=== PATIENT | male | born 1950 ===

== ENCOUNTER 2018-06-24 10:50 | Inpatient (IN) | payer MEDICAID, MEDICARE ==
[2018-06-24 10:51] VITALS: BMI 27.4
[2018-06-24] MEDS ORDERED: Sodium Chloride 0.9% 1,000 ML IV STA ×3 (11:37→14:55)
--- NOTE | 2018-06-24 12:37 | RAD ---
Date of service: 06/24/2018 HISTORY: fever COMPARISON: No prior. FINDINGS: LUNGS: No active pulmonary disease. PLEURA: No significant pleural effusion identified, no pneumothorax apparent. CARDIOVASCULAR: Normal. OSSEOUS STRUCTURES: No significant abnormalities. VISUALIZED UPPER ABDOMEN: Normal. OTHER FINDINGS: None. IMPRESSION: No active disease.
[2018-06-24 12:43] LABS: BASO % 0.2 % (0.0-2.0); HEMOGLOBIN 13.4 g/dL (12.0-18.0); LYMPH # 0.5 K/uL (1.0-4.3); LYMPH % 3.2 % (20.0-40.0); MEAN CELL VOLUME 90.6 fl (80.0-94.0); MEAN CORPUSCULAR HGB CONC 34.2 g/dL (33.0-37.0); MEAN PLATELET VOLUME 10.8 fl (7.2-11.7); MONO # 0.4 K/uL (0.0-0.8); MONO % 2.7 % (0.0-10.0); NEUT # 14.9 K/uL (1.8-7.0); NEUT % 93.9 % (50.0-75.0); RBC 4.32 Mil/uL (4.40-5.90); RED CELL DISTRIBUTION WIDTH 13.3 % (11.5-14.5); WHITE BLOOD COUNT 15.9 K/uL (4.8-10.8)
[2018-06-24 12:51] LABS: ALB/GLOB RATIO 1.1 (1.0-2.1); ALBUMIN 3.9 g/dL (3.5-5.0); ALT/SGPT 26 U/L (21-72); AST/SGOT 23 U/L (17-59); BLOOD UREA NITROGEN 23 mg/dl (9-20); CALCIUM 9.3 mg/dL (8.4-10.2); GFR NON-AFRICAN AMERICAN > 60
[2018-06-24 12:53] LABS: VENOUS BLOOD GAS BASE EXCESS 4.5 mmol/L (0.0-2.0); VENOUS BLOOD GAS PCO2 39 mmHg (40-60); VENOUS BLOOD GAS PO2 27 mm/Hg (30-55); VENOUS BLOOD PH 7.47 (7.32-7.43)
[2018-06-24 12:54] LABS: PLATELET COUNT 106 K/uL (130-400)
[2018-06-24 13:30] LABS: ANISOCYTOSIS SLIGHT; BANDS 26 % (0-2); LYMPHOCYTE 3 % (20-50); MONOCYTE 1 % (0-10); NEUTROPHIL 70 % (42-75); PLATELET ESTIMATE SLIGHTLY DECREASED (NORMAL); TOTAL CELLS COUNTED 100
[2018-06-24 13:31] LABS: LARGE PLATELETS PRESENT
[2018-06-24] MEDS ORDERED: cefTRIAXone (Rocephin) 1 gm Inj ONE (13:44)
[2018-06-24] MEDS ORDERED: SODIUM CHLORIDE 0.9% IVPB SCH (13:58)
[2018-06-24] MEDS ORDERED: GENTAMICIN IVPB SCH (13:58)
--- NOTE | 2018-06-24 14:16 | ED PDOC ---
Addendum entered and electronically signed by Marilee Riggs PA-C 06/24/18 16:45: Addendum Addendum: 06/24/18 16:45 CT results discussed with Dr. Zeng and Dr. Dumont. Original Note: HPI: General Adult Chief Complaint (Provider): Fever, lower abdominal discomfort History Per: Patient History/Exam Limitations: no limitations, other (Compounding Assistant used ) Have you had recent travel within the past 21 days to any of the following countries: [place], [place], [place] or [place]?: No Additional Complaint(s): 68 yo male with HTN and BPH presents for evaluation of fever. Pt states he had surgery on his prostate [address] Bell in [facility]. Pt states yesterday night he was having chills/shakes. PT states he noticed a fever this morning and was sweating. Pt states his lower abdominal has a mild discomfort but not a pain. Pt denies cough. Pt states his urine has been red but getting less red lise, which he was told to expect. Pt states he has been urinating on his own however cannot tell when he is having the sensation of needing to go so he has been wearing a diaper. Pt states he also uses enemas to have BMs at home. <Marilee Riggs - Last Filed: 06/24/18 16:45> <Tere Swain - Last Filed: 06/25/18 15:58> Time Seen by Provider: 06/24/18 10:57 Chief Complaint (Nursing): Abdominal Pain Supervising Attending Note - Supervising Attending Note The Documented history was done by the: Attending Physician The documented physical exam was done by the: Attending Physician - Attestation: I have personally seen and examined this patient.: Yes I have fully participated in the care of the patient.: Yes I have reviewed all pertinent clinical information, including history, physical exam and plan: Yes - Notes: Notes:: Pt 3 days s/p laser ablation of the prostate, presented to ED with fever, tachycardia and hypotension. Labs revealed leukocytosis, bandemia and elevated lactate. Code sepsis protocol initiated. IVF boluses administered. Case discussed with Dr. Dumont, Dr. Newell and Dr. Kramer. Meropenem ordered. <Tere Swain - Last Filed: 06/25/18 15:58> Past Medical History Vital Signs: Last Vital Signs Temp 98.6 F 06/24/18 12:18 Pulse 118 H 06/24/18 11:11 Resp 20 06/24/18 11:11 BP 105/56 L 06/24/18 11:11 Pulse Ox 99 06/24/18 11:11 - Medical History PMH: Arthritis, Back Problems, Colonic Polyps, HTN, Hypercholesterolemia (no longer) - Surgical History Surgical History: Endoscopy - Family History Family History: States: Unknown Family Hx - Immunization History Hx Tetanus Toxoid Vaccination: No Hx Influenza Vaccination: Yes (2014) Hx Pneumococcal Vaccination: No <Marilee Riggs - Last Filed: 06/24/18 16:45> Vital Signs: Last Vital Signs Temp 97.9 F 06/25/18 12:00 Pulse 71 06/25/18 14:00 Resp 12 06/25/18 14:00 BP 93/57 L 06/25/18 14:00 Pulse Ox 100 06/25/18 14:00 <Tere Swain - Last Filed: 06/25/18 15:58> - Home Medications Home Medications: Ambulatory Orders Medication Instructions Recorded Lisinopril/Hydrochlorothiazide 1 tab PO DAILY 08/16/17 [Lisinopril-Hydrochlorothiazide 25 mg-20 mg] metFORMIN [glucOPHAGE] 500 mg PO DAILY 04/09/18 Ciprofloxacin [Cipro] 500 mg PO Q12 06/24/18 RX: Aspirin [Ecotrin] 81 mg PO DAILY 06/24/18 RX: Ibuprofen [Ibuprofen Ib] 400 mg PO Q6 PRN 06/24/18 - Allergies Allergies/Adverse Reactions: Allergies Allergy/AdvReac Type Severity Reaction Status Date / Time No Known Allergies Allergy Verified 06/24/18 11:11 - Laboratory Results Result Diagrams: 06/24/18 12:30 06/24/18 12:30 - ECG O2 Sat by Pulse Oximetry: 99 Pulse Ox Interpretation: Normal - Radiology X-Ray: Interpreted by Mi - Critical Care Total Time (In Min): 30 <Marilee Riggs - Last Filed: 06/24/18 16:45> - Laboratory Results Result Diagrams: 06/25/18 04:30 06/25/18 04:30 - Core Measure Core Measure Indicators: Code Sepsis - Critical Care Total Time (In Min): 45 <Tere Swain - Last Filed: 06/25/18 15:58> Medical Decision Making Medical Decision Makin yo male with HTN presents with fever. IV and fluids given. Labs including VBG and blood cultures. Elevetd WBC 15.6 and bands 26 - Resulted at 1333. Additional fluids placed. Repeat vitals - Hypotension, normal HR, afebrile. Code sepsis called at 1342. Dr. Swain discussed with Dr. Kramer - Meropenem 1g Q8H. monitor fluid in/out Dr. Swain also discussed with Dr. Newell for admission. Pts primary is Dr. Degroot. 1410 - Discussed urinary catheter with Dr. Zeng and prefers patient not have catheter placed due to recent prostates surgery. 1413 - Pt gives urine. 1415 - Dr. Howe, resident notified. <Marilee Riggs - Last Filed: 06/24/18 16:45> Disposition - Patient ED Disposition Is Patient to be Admitted: Yes - Disposition Disposition Time: 14:05 - Pt Status Changed To: Hospital Disposition Of: Inpatient - Admit Certification Admit to Inpatient:: After my assessment, the patient will require hospitalization for at least two midnights. This is because of the severity of symptoms shown, intensity of services needed, and/or the medical risk in this pa tient being treated as an outpatient. - POA Present On Arrival: None Core Measure Indicators: Code Sepsis <Marilee Riggs - Last Filed: 06/24/18 16:45> <Tere Swain - Last Filed: 06/25/18 15:58> - Clinical Impression Clinical Impression: Sepsis - Disposition Condition: FAIR
[2018-06-24 14:30] LABS: SQUAMOUS EPITHIAL < 1 /hpf (0-5); URINE BACTERIA MANY (<OCC); URINE BILIRUBIN NEGATIVE (NEGATIVE); URINE BLOOD LARGE (NEGATIVE); URINE CLARITY CLOUDY (Clear); URINE COLOR YELLOW (YELLOW); URINE GLUCOSE (UA) NEG (Normal); URINE HYALINE CAST >20 /hpf (0-2); URINE LEUKOCYTE ESTERASE MOD Leu/uL (Negative); URINE PROTEIN 100 mg/dL (NEGATIVE); URINE UROBILINOGEN 0.2-1.0 mg/dL (0.2-1.0)
[2018-06-24] MEDS ORDERED: Meropenem 1 GM in Sodium Chloride 0.9% 100 ML IVPB STA (14:38)
[2018-06-24] MEDS: Lactated Ringer's 1,000 ML IV SCH ×2 (14:42→20:14)
[2018-06-24] MEDS ORDERED: Sodium Chloride 0.9% 50 ML IV ONE (15:25)
[2018-06-24] MEDS ORDERED: Iohexol 300 100 ML IJ ONE (15:25)
--- NOTE | 2018-06-24 16:34 | CT ---
Date of service: 06/24/2018 PROCEDURE: CT Abdomen and Pelvis with contrast HISTORY: fever, prostate surgery 3 days ago COMPARISON: CT scan of the abdomen and pelvis dated 11/28/2015 TECHNIQUE: Contrast dose: 95 mL Omnipaque 300 Radiation dose: Total exam DLP = 448.8 mGy-cm. This CT exam was performed using one or more of the following dose reduction techniques: Automated exposure control, adjustment of the mA and/or kV according to patient size, and/or use of iterative reconstruction technique. FINDINGS: LOWER THORAX: Bibasilar dependent atelectasis. No focal consolidation or pleural effusion. LIVER: Coarse calcification in the hepatic dome. No gross lesion or ductal dilatation. GALLBLADDER AND BILE DUCTS: Contracted gallbladder with mild wall thickening. PANCREAS: Unremarkable. No gross lesion or ductal dilatation. SPLEEN: Unremarkable. ADRENALS: Unremarkable. No mass. KIDNEYS AND URETERS: Stable subcentimeter right lower and 4.3 cm left lower pole cysts. No hydronephrosis. No solid mass. VASCULATURE: Retro aortic left renal vein. No aortic aneurysm. BOWEL: Small hiatal hernia. No obstruction. No gross mural thickening. APPENDIX: No findings to suggest acute appendicitis. PERITONEUM: Small fat containing umbilical hernia. Small left fat containing inguinal hernia. No free fluid. No free air. LYMPH NODES: Unremarkable. No enlarged lymph nodes. BLADDER: Unremarkable. REPRODUCTIVE: Heterogeneous prostate with 2.6 x 2.5 x 2.7 cm air and fluid collection within the anteroinferior prostate. BONES: No acute fracture. Multilevel spinal degenerative changes. OTHER FINDINGS: None. IMPRESSION: 2.6 x 2.5 x 2.7 cm prostatic abscess. Findings conveyed to AWILDA Jones by Dr. Mcneill at 4:30 p.m. on 06/24/2018.
[2018-06-24] MEDS ORDERED: Meropenem 1 GM in Sodium Chloride 0.9% 100 ML IVPB SCH (17:00)
[2018-06-24 17:05] LABS: VENOUS BLOOD GAS BASE EXCESS -0.9 mmol/L (0.0-2.0); VENOUS BLOOD GAS PCO2 50 mmHg (40-60); VENOUS BLOOD GAS PO2 24 mm/Hg (30-55); VENOUS BLOOD PH 7.32 (7.32-7.43)
--- NOTE | 2018-06-24 18:00 | CP.CCUPN ---
CCU Subjective - Physician Review Subjective (Free Text): 68 M with MH: HTN, DM II, Hyperlipidemia, OA with LBP syndrome, and BPH, underwent prostate scrapings 3 days ago, presents today with high fevers, and abdominal pain, T 103.3F, and Hypotensive , Code Sepsis called, given 2 liters NSS with acceptable BP response from 85 to 110 systolic, HR in the 80s. Presently awake and alert, not distressed, denies any nausea, vomiting. No recent chills or sweats. Other vitals and I/O's reviewed. 99.1F, 100/60, 86, 21, 100% SPO2 RA ROS: No other pertinent negs or positives on 10+ system review. Allergies; NKDA Home Meds: PMSFH: All other Nursing and physician documentation reviewed to date; no new pertinent info noted relevant to current medical problems. EXAM- HEENT: no icterus, no gaze preference, pupils equal and reactive NECK: No JVD visible, supple, carotids equal upstroke bilat/no bruits CHEST: decreased BS bases, no wheezes audible HEART: regular, distant S1S2, no rubs ABD: soft, no increased distention, no tympany, mild epigastric focal tenderness without radiation, BS hypoactive, no rebound. No CVAT. EXT: no peripheral/ digital cyanosis, no calf tenderness or palpable cords, distal pulses intact and symmetrical. NEURO: no gross focal motor deficits. SKIN: no new rashes, otherwise warm and dry. LABS: WBC= 15.9 with 26% Bands HGB= 12.4 PLTs= 106K Xc=092 K= 3.7 CL= 102 HCO3= 27 BUN/Cr= 23/1.2 BS= 128 CXR (my interp): clear bilaterally, no new consolidation. EKG: pending IMPRESSION / MAJOR PROBLEMS NOW: 1. Severe sepsis with Shock 2 Source, r/o bacteremia 2. Bactiuria 3. Azotemia PLAN: 1. IVFs/ Fluid challenge, so far patient is fluid responsive. ECHO, serial Trops if hypotension persists. 2. Serial lactate levels, repeat 2nd one at approx. 4 PM today. 3. EKG, CTAP pending. 4. ID eval. Merrem coverage ordered. Blood / urine cultures ordered and obtained in ER. 5. SCDs; no need for Stress Ulcer Prx. 6. Holding home meds including antihypertensives and Metformin for now. 7. Watch Platelet counts, check Coags. 8. No Advance Directives.
--- NOTE | 2018-06-24 18:07 | PCM.SEPTIC ---
Sepsis Progress Note - Reassessment Type Date of Evaluation: 06/24/18 Time of Evaluation: 18:05 Reassessment Type: Non-invasive reassessment - Non Invasive Reassessment Were the most recent vital sign reviewed: Yes Vital Sign (Latest): Temp Pulse Resp BP Pulse Ox 99.1 F 86 20 100/65 99 06/24/18 14:20 06/24/18 14:51 06/24/18 14:51 06/24/18 14:51 06/24/18 16:23 Cardiovascular: Yes: Regular Rate, Rhythm, Tachycardia Respiratory: Yes: Normal Breath Sounds Capillary Refill: Normal (Less than 2 sec) Pulses: Normal Radial, Normal Dorsalis Pedis, Normal Posterior Tibialis Skin: Normal Color, Warm, Dry - Invasive Reassessment (complete 2 of 4) Was a Central Venous Pressure Measurement obtained within 6 Hours after the presentation of septic shock: No Was a central venous oxygen measurement obtained within 6 hours after the presentation of septic shock: No Was a bedside cardiovascular ultrasound performed within 6 hours after the presentation of septic shock: No Was a passive leg raise performed or was a fluid challenge performed within 6 hrs of the initial fluid bolus: Yes Passive Leg Raise Result: Not Applicable (No TLC placed) Fluid Challenge performed: Yes
[2018-06-24] MEDS: Meropenem 1 GM in Sodium Chloride 0.9% 100 ML IVPB SCH (18:41)
--- NOTE | 2018-06-24 18:55 | CP.PCM.PN ---
Subjective - Date & Time of Evaluation Date of Evaluation: 06/24/18 Time of Evaluation: 18:47 - Subjective Subjective: Pt who had green light laser thursday for urinary retention who Recieved Gentamycin and cipro pre op and was mon cipro developed sepsis., Pt has clark in place draining clear urine . Pt thapa ct scan which shows some tissue necrosis and free air constant with post op sepsis(Discussed with Dr Mcneill radiology) Pt placed on antibiotics by ID. A gu sepsis P continue IV antibiotics pt will need repeat CT timing to be based on clinical course. Azucena Objective - Vital Signs/Intake and Output Vital Signs (last 24 hours): Temp Pulse Resp BP Pulse Ox 99.1 F 95 H 18 100/65 99 06/24/18 14:20 06/24/18 17:04 06/24/18 17:04 06/24/18 14:51 06/24/18 16:23 Intake and Output: 06/24/18 06/24/18 06:59 18:59 Output Total 425 Balance -425 - Medications Medications: Current Medications Acetaminophen (Tylenol 325mg Tab) 650 mg PO Q6 PRN PRN Reason: pain mild-moderate Lactated Ringer's (Lactated Ringer's) 1,000 mls @ 250 mls/hr IV .Q4H NIC Stop: 06/25/18 02:46 Last Admin: 06/24/18 14:42 Dose: 250 mls/hr Meropenem 1 gm/ Sodium (Chloride) 100 mls @ 100 mls/hr IVPB Q8 NIC; Protocol Last Admin: 06/24/18 18:41 Dose: 100 mls/hr Vancomycin HCl 1 gm/ Sodium (Chloride) 250 mls @ 166.667 mls/hr IVPB ONCE ONE; Protocol Stop: 06/24/18 19:12 Last Admin: 06/24/18 18:41 Dose: 166.667 mls/hr - Labs Labs: 06/24/18 12:30 06/24/18 12:30
[2018-06-25] MEDS: Meropenem 1 GM in Sodium Chloride 0.9% 100 ML IVPB SCH ×3 (00:03→16:39)
[2018-06-25] MEDS: Lactated Ringer's 1,000 ML IV SCH ×3 (04:51→14:48)
[2018-06-25 05:50] LABS: BASO % 0.2 % (0.0-2.0); EOS % 0.1 % (0.0-4.0); HEMOGLOBIN 11.6 g/dL (12.0-18.0); LYMPH # 1.2 K/uL (1.0-4.3); LYMPH % 10.6 % (20.0-40.0); MEAN CELL VOLUME 93.1 fl (80.0-94.0); MEAN CORPUSCULAR HEMOGLOBIN 31.3 pg (27.0-31.0); MEAN CORPUSCULAR HGB CONC 33.7 g/dL (33.0-37.0); MEAN PLATELET VOLUME 11.4 fl (7.2-11.7); MONO # 0.6 K/uL (0.0-0.8); MONO % 4.8 % (0.0-10.0); NEUT # 9.9 K/uL (1.8-7.0); NEUT % 84.3 % (50.0-75.0); RBC 3.7 Mil/uL (4.40-5.90); RED CELL DISTRIBUTION WIDTH 13.7 % (11.5-14.5); WHITE BLOOD COUNT 11.7 K/uL (4.8-10.8)
[2018-06-25 05:54] LABS: INR 1.4; PROTHROMBIN TIME 15.3 Seconds (9.8-13.1)
[2018-06-25 05:56] LABS: PARTIAL THROMBOPLASTIN TIME 30.3 Seconds (25.6-37.1)
[2018-06-25 06:00] LABS: ALBUMIN 3.1 g/dL (3.5-5.0); ALT/SGPT 48 U/L (21-72); AST/SGOT 106 U/L (17-59); BLOOD UREA NITROGEN 17 mg/dl (9-20); CALCIUM 8.7 mg/dL (8.4-10.2); GFR NON-AFRICAN AMERICAN > 60
--- NOTE | 2018-06-25 08:29 | CARD ---
APPROVED REPORT Date of service: 06/25/2018 EKG Measurement Heart [id number] <Conclusion> Sinus bradycardia Otherwise normal ECG
--- NOTE | 2018-06-25 08:39 | CARD ---
APPROVED REPORT Date of service: 06/24/2018 EKG Measurement Heart [id number] <Conclusion> Normal sinus rhythm Normal Electrocardiogram
--- NOTE | 2018-06-25 08:40 | CP.PCM.HP ---
<Jose Howe - Last Filed: 06/25/18 15:28> History of Present Illness - History of Present Illness History of Present Illness: Pt is a 68 y/o male with hx of BPH s/p[ Prostate Laser Ablation 3 days ago who came to ED with complaints of fever/chills, night sweats, and generalized weakness. States he has also been having small hematuria which he was told would be expected by urologist given recent procedure. He denies any procedural complications and states he took antibiotics prior. Denies N/V/D, abdominal pain, cough, sob, sick contacts, headaches or neck rigidity. Has chronic hx of constipation, uses enemas on a regular basis. Urologist: Dr. Zeng PMHx: HTN, NIDDM, BPH PSurgHx: Green Laser Therapy 3 days ago, Prostate States he has had mutliple prostate-related surgeries but cannot specify Social: Non smoker ED Course: -Pt sepsis- febrile, tachycardic, hypotensive, leukocytosis -Cxray no acute findings -2L IV fluid bolus, Blood Cx, UCx -ID consulted, Dr. Kramer, Meropenem started -Urology consulted -Abdominal/Pelvis CT w/ and w/o contrast -S/P Vanco, Meropenem, Ceftriaxone Present on Admission - Present on Admission Any Indicators Present on Admission: No Past Patient History - Infectious Disease Hx of Infectious Diseases: None - Past Medical History & Family History Past Medical History?: Yes - Past Social History Smoking Status: Never Smoked - CARDIAC Hx Hypercholesterolemia: Yes (no longer) Hx Hypertension: Yes - PULMONARY Hx Respiratory Disorders: No - NEUROLOGICAL Hx Neurological Disorder: No - HEENT Hx HEENT Problems: Yes Other/Comment: Uses glasses for near and far sightness. - RENAL Hx Chronic Kidney Disease: No - ENDOCRINE/METABOLIC Hx Endocrine Disorders: Yes Hx Diabetes Mellitus Type 2: Yes - HEMATOLOGICAL/ONCOLOGICAL Hx Blood Disorders: No - INTEGUMENTARY Hx Dermatological Problems: No - MUSCULOSKELETAL/RHEUMATOLOGICAL Hx Musculoskeletal Disorders: Yes Hx Arthritis: Yes Hx Falls: No - GASTROINTESTINAL Hx Gastrointestinal Disorders: Yes Hx Constipation: Yes - GENITOURINARY/GYNECOLOGICAL Hx Genitourinary Disorders: Yes Hx Prostate Problems: Yes - PSYCHIATRIC Hx Substance Use: No - SURGICAL HISTORY Hx Surgeries: Yes Hx Herniorrhaphy: Yes (umbilical and right ing) Other/Comment: HX:green light laser. HX: CYSTOSCOPY(06/07/18) - ANESTHESIA Hx Anesthesia: Yes Hx Anesthesia Reactions: Yes (NAUSEA/VOMITING) Hx Malignant Hyperthermia: No Has any member of the family had a problem w/ anesthesia?: No Meds Allergies/Adverse Reactions: Allergies Allergy/AdvReac Type Severity Reaction Status Date / Time No Known Allergies Allergy Verified 06/24/18 11:11 Physical Exam - Constitutional Appears: No Acute Distress - Head Exam Head Exam: NORMAL INSPECTION - Eye Exam Eye Exam: Normal appearance, PERRL. absent: Conjunctival injection - ENT Exam ENT Exam: Mucous Membranes Moist - Neck Exam Neck exam: Positive for: Full Rom. Negative for: Lymphadenopathy - Respiratory Exam Respiratory Exam: Clear to Auscultation Bilateral. absent: Rales, Wheezes, Respiratory Distress - Cardiovascular Exam Cardiovascular Exam: Tachycardia, +S1, +S2. absent: Systolic Murmur - GI/Abdominal Exam GI & Abdominal Exam: Normal Bowel Sounds, Soft. absent: Organomegaly, Rigid, Tenderness - Exam Exam: absent: Scrotal Swelling, Testicular Tenderness, Uretheral Discharge External exam: NORMAL EXTERNAL EXAM. absent: Ecchymosis, Erythema - Extremities Exam Extremities exam: Positive for: normal inspection - Neurological Exam Neurological exam: Alert, Oriented x3 - Psychiatric Exam Psychiatric exam: Normal Affect - Skin Skin Exam: Diaphoretic, Normal Color Results - Vital Signs Recent Vital Signs: Last Vital Signs Temp 97.7 F 06/25/18 08:00 Pulse 55 L 06/25/18 08:00 Resp 11 L 06/25/18 08:00 BP 90/56 L 06/25/18 08:00 Pulse Ox 100 06/25/18 08:00 - Labs Result Diagrams: 06/25/18 04:30 06/25/18 04:30 Labs: Laboratory Results - last 24 hr 06/24/18 06/24/18 06/24/18 12:30 12:30 12:30 WBC 15.9 H D RBC 4.32 L Hgb 13.4 Hct 39.2 MCV 90.6 MCH 31.0 MCHC 34.2 RDW 13.3 Plt Count 106 L MPV 10.8 Neut % (Auto) 93.9 H Lymph % (Auto) 3.2 L Davis % (Auto) 2.7 Eos % (Auto) 0.0 Baso % (Auto) 0.2 Neut # (Auto) 14.9 H Lymph # (Auto) 0.5 L Davis # (Auto) 0.4 Eos # (Auto) 0.0 Baso # (Auto) 0.0 Neutrophils % (Manual) 70 Band Neutrophils % 26 H* Lymphocytes % (Manual) 3 L Monocytes % (Manual) 1 Platelet Estimate Slightly decreased L Large Platelets Present Anisocytosis (manual) Slight PT INR APTT Fibrinogen pO2 VBG pH VBG pCO2 VBG HCO3 VBG Total CO2 VBG O2 Sat (Calc) VBG Base Excess VBG Potassium Glucose Lactate FiO2 Sodium 139 Potassium 3.7 Chloride 102 Carbon Dioxide 27 Anion Gap 14 BUN 23 H Creatinine 1.2 Est GFR ( Amer) > 60 Est GFR (Non-Af Amer) > 60 Random Glucose 138 H Lactic Acid Calcium 9.3 Phosphorus Magnesium Total Bilirubin 2.2 H AST 23 ALT 26 Alkaline Phosphatase 62 Total Protein 7.5 Albumin 3.9 Globulin 3.5 Albumin/Globulin Ratio 1.1 Venous Blood Potassium Urine Color Urine Clarity Urine pH Ur Specific Stafford Urine Protein Urine Glucose (UA) Urine Ketones Urine Blood Urine Nitrate Urine Bilirubin Urine Urobilinogen Ur Leukocyte Esterase Urine RBC (Auto) Urine Microscopic WBC Ur Squamous Epith Cells Urine Bacteria Hyaline Casts Influenza Typ A,B (EIA) Negative for flu a/b 06/24/18 06/24/18 06/24/18 12:45 14:15 16:10 WBC RBC Hgb Hct MCV MCH MCHC RDW Plt Count MPV Neut % (Auto) Lymph % (Auto) Davis % (Auto) Eos % (Auto) Baso % (Auto) Neut # (Auto) Lymph # (Auto) Davis # (Auto) Eos # (Auto) Baso # (Auto) Neutrophils % (Manual) Band Neutrophils % Lymphocytes % (Manual) Monocytes % (Manual) Platelet Estimate Large Platelets Anisocytosis (manual) PT INR APTT Fibrinogen pO2 27 L VBG pH 7.47 H VBG pCO2 39 L VBG HCO3 27.3 VBG Total CO2 29.6 H VBG O2 Sat (Calc) 59.0 VBG Base Excess 4.5 H VBG Potassium 3.6 Glucose 141 H Lactate 3.5 H FiO2 21.0 Sodium 135.0 Potassium Chloride 101.0 Carbon Dioxide Anion Gap BUN Creatinine Est GFR ( Amer) Est GFR (Non-Af Amer) Random Glucose Lactic Acid 1.6 Calcium Phosphorus Magnesium Total Bilirubin AST ALT Alkaline Phosphatase Total Protein Albumin Globulin Albumin/Globulin Ratio Venous Blood Potassium 3.6 Urine Color Yellow Urine Clarity Cloudy Urine pH 6.0 Ur Specific Stafford 1.013 Urine Protein 100 Urine Glucose (UA) Neg Urine Ketones Negative Urine Blood Large Urine Nitrate Negative Urine Bilirubin Negative Urine Urobilinogen 0.2-1.0 Ur Leukocyte Esterase Mod Urine RBC (Auto) 26 H Urine Microscopic WBC 79 H Ur Squamous Epith Cells < 1 Urine Bacteria Many H Hyaline Casts >20 H Influenza Typ A,B (EIA) 06/24/18 06/25/18 06/25/18 16:51 04:30 04:30 WBC 11.7 H RBC 3.70 L Hgb 11.6 L Hct 34.5 L MCV 93.1 D MCH 31.3 H MCHC 33.7 RDW 13.7 Plt Count 86 L D MPV 11.4 Neut % (Auto) 84.3 H Lymph % (Auto) 10.6 L Davis % (Auto) 4.8 Eos % (Auto) 0.1 Baso % (Auto) 0.2 Neut # (Auto) 9.9 H Lymph # (Auto) 1.2 Davis # (Auto) 0.6 Eos # (Auto) 0.0 Baso # (Auto) 0.0 Neutrophils % (Manual) Band Neutrophils % Lymphocytes % (Manual) Monocytes % (Manual) Platelet Estimate Large Platelets Anisocytosis (manual) PT 15.3 H INR 1.4 APTT 30.3 Fibrinogen 573 H pO2 24 L VBG pH 7.32 VBG pCO2 50 VBG HCO3 22.6 VBG Total CO2 27.3 VBG O2 Sat (Calc) 41.6 VBG Base Excess -0.9 L VBG Potassium 3.9 Glucose 100 Lactate 2.2 H FiO2 21.0 Sodium 135.0 Potassium Chloride 105.0 Carbon Dioxide Anion Gap BUN Creatinine Est GFR ( Amer) Est GFR (Non-Af Amer) Random Glucose Lactic Acid Calcium Phosphorus Magnesium Total Bilirubin AST ALT Alkaline Phosphatase Total Protein Albumin Globulin Albumin/Globulin Ratio Venous Blood Potassium 3.9 Urine Color Urine Clarity Urine pH Ur Specific [place] Urine Protein Urine Glucose (UA) Urine Ketones Urine Blood Urine Nitrate Urine Bilirubin Urine Urobilinogen Ur Leukocyte Esterase Urine RBC (Auto) Urine Microscopic WBC Ur Squamous Epith Cells Urine Bacteria Hyaline Casts Influenza Typ A,B (EIA) 06/25/18 06/25/18 04:30 04:30 WBC RBC Hgb Hct MCV MCH MCHC RDW Plt Count MPV Neut % (Auto) Lymph % (Auto) Davis % (Auto) Eos % (Auto) Baso % (Auto) Neut # (Auto) Lymph # (Auto) Davis # (Auto) Eos # (Auto) Baso # (Auto) Neutrophils % (Manual) Band Neutrophils % Lymphocytes % (Manual) Monocytes % (Manual) Platelet Estimate Large Platelets Anisocytosis (manual) PT INR APTT Fibrinogen pO2 VBG pH VBG pCO2 VBG HCO3 VBG Total CO2 VBG O2 Sat (Calc) VBG Base Excess VBG Potassium Glucose Lactate FiO2 Sodium 142 Potassium 3.5 L Chloride 108 H Carbon Dioxide 30 Anion Gap 8 L BUN 17 Creatinine 0.9 Est GFR ( Amer) > 60 Est GFR (Non-Af Amer) > 60 Random Glucose 99 Lactic Acid 0.8 Calcium 8.7 Phosphorus 3.0 Magnesium 1.9 Total Bilirubin 1.6 H AST 106 H D ALT 48 Alkaline Phosphatase 50 Total Protein 6.3 Albumin 3.1 L D Globulin 3.2 Albumin/Globulin Ratio 1.0 Venous Blood Potassium Urine Color Urine Clarity Urine pH Ur Specific [place] Urine Protein Urine Glucose (UA) Urine Ketones Urine Blood Urine Nitrate Urine Bilirubin Urine Urobilinogen Ur Leukocyte Esterase Urine RBC (Auto) Urine Microscopic WBC Ur Squamous Epith Cells Urine Bacteria Hyaline Casts Influenza Typ A,B (EIA) Assessment & Plan - Assessment and Plan (Free Text) Assessment: Pt is a 68 y/o male with hx of BPH s/p[ Prostate Laser Ablation 3 days ago who came to ED with complaints of fever/chills, night sweats, and generalized weakne ss, admitted to ICU for sepsis. Abd/Pelvis CT: Low density lesion in prostate, possible abscess. Addendum by radiologist- likely tissue necrosis #Sepsis -Etiology unknown; questionable prostate abscess, Urine + for GNR -C/W Ceftriaxone and Meropenem -IV fluid as per sepsis protocol -ID Consulted, Dr. Kramer #S/P Prostate Scraping -Urology consulted, Dr. Zeng Management as per ICU Discussed case with Dr. Osiris Howe, PGY2 <Ruebn Newell - Last Filed: 06/28/18 02:50> Results - Vital Signs Recent Vital Signs: Last Vital Signs Temp 98.1 F 06/28/18 01:00 Pulse 72 06/28/18 01:00 Resp 18 06/28/18 01:00 BP 114/73 06/28/18 01:00 Pulse Ox 96 06/28/18 01:00 - Labs Result Diagrams: 06/27/18 06:18 06/27/18 06:18 Labs: Laboratory Results - last 24 hr 06/27/18 06/27/18 06:18 06:18 WBC 6.1 RBC 3.33 L Hgb 10.4 L Hct 30.1 L MCV 90.7 D MCH 31.3 H MCHC 34.5 RDW 13.2 Plt Count 85 L Sodium 139 Potassium 3.7 Chloride 107 Carbon Dioxide 27 Anion Gap 9 L BUN 11 Creatinine 0.7 L Est GFR ( Amer) > 60 Est GFR (Non-Af Amer) > 60 Random Glucose 82 Calcium 8.1 L Phosphorus 1.9 L Magnesium 1.7 Total Bilirubin 0.3 AST 66 H D ALT 54 Alkaline Phosphatase 43 Total Protein 5.2 L Albumin 2.4 L D Globulin 2.7 Albumin/Globulin Ratio 0.9 L Assessment & Plan - Assessment and Plan (Free Text) Assessment: Patient was personally seen and examined by me in rounds with residents. Available labs and diagnostic data reviewed. Case, Patient's condition and management plan discussed with residents in rounds. Agree with resident's progress note. Plan: As ordered.
[2018-06-25] MEDS: Potassium Chloride 20 mEq ER Tab PO SCH ×2 (09:32→16:38)
--- NOTE | 2018-06-25 11:25 | CP.CCUPN ---
CCU Subjective - Physician Review Subjective (Free Text): Awake and alert. no further shking chills, afberile this AM, no recurrent fever spikes, hemodynamics have improved and stabilized, on LR 125 ml/hr. [place] catheter draining clear urine. Denies any recurrent abdominal discomfort. Other vitals and I/O's reviewed. 99.1F, 100/60, 86, 21, 100% SPO2 RA ROS: No other pertinent negs or positives on 10+ system review. Allergies; NKDA Home Meds: PMSFH: All other Nursing and physician documentation reviewed to date; no new pertinent info noted relevant to current medical problems. EXAM- HEENT: no icterus, no gaze preference, pupils equal and reactive NECK: No JVD visible, supple, carotids equal upstroke bilat/no bruits CHEST: decreased BS bases, no wheezes audible HEART: regular, distant S1S2, no rubs ABD: soft, no increased distention, no tympany, mild epigastric focal tenderness without radiation, BS hypoactive, no rebound. No CVAT. EXT: no peripheral/ digital cyanosis, no calf tenderness or palpable cords, distal pulses intact and symmetrical. NEURO: no gross focal motor deficits. SKIN: no new rashes, otherwise warm and dry. LABS: WBC= 11.7 HGB= 11.6 PLTs= 86K Mb=596 K= 3.5 CL= 108 HCO3= 30 BUN/Cr= 17/0.9 BS= 99 IMPRESSION / MAJOR PROBLEMS NOW: 1. Severe sepsis with Shock 2 Source, r/o bacteremia 2. Bactiuria 3. Azotemia PLAN: 1. Further mgmt discussed with urology: no real abscess formation nor collection near prostate after re-review of CT findings. Continue Merrem. Awaiting final BC results. 2. Orders for "No Small placement" already on chart. 3. Watch Platelet counts, no active bleeding, Fib levels elevated. 4. Stable for transfer to regular [facility] bed fro further mgmt and treatment. 1. IVFs/ Fluid challenge, so far patient is fluid responsive. ECHO, serial Trops if hypotension persists. 2. Serial lactate levels, repeat 2nd one at approx. 4 PM today. 3. EKG, CTAP pending. 4. ID eval. Merrem coverage ordered. Blood / urine cultures ordered and obtained in ER. 5. SCDs; no need for Stress Ulcer Prx. 6. Holding home meds including antihypertensives and Metformin for now. 7. Watch Platelet counts, check Coags. 8. No Advance Directives. 06/25/18 11:19 CCU Objective - Vital Signs / Intake & Output Vital Signs (Last 4 hours): Vital Signs Temp Pulse Resp BP Pulse Ox 06/25/18 10:00 62 16 94/60 L 100 06/25/18 08:00 97.7 F 55 L 11 L 90/56 L 100 Intake and Output (Last 8hrs): Intake & Output 06/24/18 06/25/18 06/25/18 22:59 06:59 14:59 Intake Total 950 2100 715 Output Total 800 Balance 150 2100 715 Intake: IV 750 2000 375 Intake, Piggyback 100 100 Oral 200 0 240 Output: Urine 800 Urine, Voided 800 Other: # Voids Urine, Voided 1 Critical Care Progress Note - Nutrition Nutrition: Nutrition Category Date Time Status Consistent Carbohydrate [DIET] Diets 06/24/18 Dinner Active
--- NOTE | 2018-06-25 13:45 | CP.PCM.CON ---
History of Present Illness - History of Present Illness History of Present Illness: 68 yo male with HTN and BPH presents for evaluation of fever. Pt states he had surgery on his prostate [address] Zeng in [facility] admitted to ICU for code sepsis / hypotension with gram negative in urine Past Patient History - Infectious Disease Hx of Infectious Diseases: None - Past Medical History & Family History Past Medical History?: Yes - Past Social History Smoking Status: Never Smoked - CARDIAC Hx Hypercholesterolemia: Yes (no longer) Hx Hypertension: Yes - PULMONARY Hx Respiratory Disorders: No - NEUROLOGICAL Hx Neurological Disorder: No - HEENT Hx HEENT Problems: Yes Other/Comment: Uses glasses for near and far sightness. - RENAL Hx Chronic Kidney Disease: No - ENDOCRINE/METABOLIC Hx Endocrine Disorders: Yes Hx Diabetes Mellitus Type 2: Yes - HEMATOLOGICAL/ONCOLOGICAL Hx Blood Disorders: No - INTEGUMENTARY Hx Dermatological Problems: No - MUSCULOSKELETAL/RHEUMATOLOGICAL Hx Musculoskeletal Disorders: Yes Hx Arthritis: Yes Hx Falls: No - GASTROINTESTINAL Hx Gastrointestinal Disorders: Yes Hx Constipation: Yes - GENITOURINARY/GYNECOLOGICAL Hx Genitourinary Disorders: Yes Hx Prostate Problems: Yes - PSYCHIATRIC Hx Substance Use: No - SURGICAL HISTORY Hx Surgeries: Yes Hx Herniorrhaphy: Yes (umbilical and right ing) Other/Comment: HX:green light laser. HX: CYSTOSCOPY(06/07/18) - ANESTHESIA Hx Anesthesia: Yes Hx Anesthesia Reactions: Yes (NAUSEA/VOMITING) Hx Malignant Hyperthermia: No Has any member of the family had a problem w/ anesthesia?: No Meds Allergies/Adverse Reactions: Allergies Allergy/AdvReac Type Severity Reaction Status Date / Time No Known Allergies Allergy Verified 06/24/18 11:11 - Medications Medications: Current Medications Acetaminophen (Tylenol 325mg Tab) 650 mg PO Q6 PRN PRN Reason: pain mild-moderate Bisacodyl (Dulcolax) 10 mg PO ONCE ONE Stop: 06/25/18 13:43 Meropenem 1 gm/ Sodium (Chloride) 100 mls @ 100 mls/hr IVPB Q8 NIC; Protocol Last Admin: 06/25/18 09:36 Dose: 100 mls/hr Lactated Ringer's (Lactated Ringer's) 1,000 mls @ 125 mls/hr IV .Q8H NIC Last Admin: 06/25/18 06:45 Dose: 125 mls/hr Potassium Chloride (K-Dur 20 Meq Er Tab) 20 meq PO BID NIC Stop: 06/26/18 17:01 Last Admin: 06/25/18 09:32 Dose: 20 meq Temazepam (Restoril) 30 mg PO HS PRN PRN Reason: Insomnia Last Admin: 06/24/18 20:51 Dose: 30 mg Results - Vital Signs Recent Vital Signs: Last Vital Signs Temp 97.9 F 06/25/18 12:00 Pulse 60 06/25/18 12:00 Resp 16 06/25/18 12:00 BP 84/53 L 06/25/18 12:00 Pulse Ox 100 06/25/18 12:00 - Labs Result Diagrams: 06/25/18 04:30 06/25/18 04:30 Labs: Laboratory Results - last 24 hr 06/24/18 06/24/18 06/24/18 14:15 16:10 16:51 WBC RBC Hgb Hct MCV MCH MCHC RDW Plt Count MPV Neut % (Auto) Lymph % (Auto) Clinch % (Auto) Eos % (Auto) Baso % (Auto) Neut # (Auto) Lymph # (Auto) Clinch # (Auto) Eos # (Auto) Baso # (Auto) PT INR APTT Fibrinogen pO2 24 L VBG pH 7.32 VBG pCO2 50 VBG HCO3 22.6 VBG Total CO2 27.3 VBG O2 Sat (Calc) 41.6 VBG Base Excess -0.9 L VBG Potassium 3.9 Sodium 135.0 Chloride 105.0 Glucose 100 Lactate 2.2 H FiO2 21.0 Potassium Carbon Dioxide Anion Gap BUN Creatinine Est GFR ( Amer) Est GFR (Non-Af Amer) Random Glucose Lactic Acid 1.6 Calcium Phosphorus Magnesium Total Bilirubin AST ALT Alkaline Phosphatase Total Protein Albumin Globulin Albumin/Globulin Ratio Venous Blood Potassium 3.9 Urine Color Yellow Urine Clarity Cloudy Urine pH 6.0 Ur Specific [place] 1.013 Urine Protein 100 Urine Glucose (UA) Neg Urine Ketones Negative Urine Blood Large Urine Nitrate Negative Urine Bilirubin Negative Urine Urobilinogen 0.2-1.0 Ur Leukocyte Esterase Mod Urine RBC (Auto) 26 H Urine Microscopic WBC 79 H Ur Squamous Epith Cells < 1 Urine Bacteria Many H Hyaline Casts >20 H 06/25/18 06/25/18 06/25/18 04:30 04:30 04:30 WBC 11.7 H RBC 3.70 L Hgb 11.6 L Hct 34.5 L MCV 93.1 D MCH 31.3 H MCHC 33.7 RDW 13.7 Plt Count 86 L D MPV 11.4 Neut % (Auto) 84.3 H Lymph % (Auto) 10.6 L Clinch % (Auto) 4.8 Eos % (Auto) 0.1 Baso % (Auto) 0.2 Neut # (Auto) 9.9 H Lymph # (Auto) 1.2 Clinch # (Auto) 0.6 Eos # (Auto) 0.0 Baso # (Auto) 0.0 PT 15.3 H INR 1.4 APTT 30.3 Fibrinogen 573 H pO2 VBG pH VBG pCO2 VBG HCO3 VBG Total CO2 VBG O2 Sat (Calc) VBG Base Excess VBG Potassium Sodium 142 Chloride 108 H Glucose Lactate FiO2 Potassium 3.5 L Carbon Dioxide 30 Anion Gap 8 L BUN 17 Creatinine 0.9 Est GFR ( Amer) > 60 Est GFR (Non-Af Amer) > 60 Random Glucose 99 Lactic Acid Calcium 8.7 Phosphorus 3.0 Magnesium 1.9 Total Bilirubin 1.6 H AST 106 H D ALT 48 Alkaline Phosphatase 50 Total Protein 6.3 Albumin 3.1 L D Globulin 3.2 Albumin/Globulin Ratio 1.0 Venous Blood Potassium Urine Color Urine Clarity Urine pH Ur Specific [place] Urine Protein Urine Glucose (UA) Urine Ketones Urine Blood Urine Nitrate Urine Bilirubin Urine Urobilinogen Ur Leukocyte Esterase Urine RBC (Auto) Urine Microscopic WBC Ur Squamous Epith Cells Urine Bacteria Hyaline Casts 06/25/18 04:30 WBC RBC Hgb Hct MCV MCH MCHC RDW Plt Count MPV Neut % (Auto) Lymph % (Auto) Clinch % (Auto) Eos % (Auto) Baso % (Auto) Neut # (Auto) Lymph # (Auto) Clinch # (Auto) Eos # (Auto) Baso # (Auto) PT INR APTT Fibrinogen pO2 VBG pH VBG pCO2 VBG HCO3 VBG Total CO2 VBG O2 Sat (Calc) VBG Base Excess VBG Potassium Sodium Chloride Glucose Lactate FiO2 Potassium Carbon Dioxide Anion Gap BUN Creatinine Est GFR ( Amer) Est GFR (Non-Af Amer) Random Glucose Lactic Acid 0.8 Calcium Phosphorus Magnesium Total Bilirubin AST ALT Alkaline Phosphatase Total Protein Albumin Globulin Albumin/Globulin Ratio Venous Blood Potassium Urine Color Urine Clarity Urine pH Ur Specific [place] Urine Protein Urine Glucose (UA) Urine Ketones Urine Blood Urine Nitrate Urine Bilirubin Urine Urobilinogen Ur Leukocyte Esterase Urine RBC (Auto) Urine Microscopic WBC Ur Squamous Epith Cells Urine Bacteria Hyaline Casts
[2018-06-25] MEDS ORDERED: Bisacodyl 5mg EC Tab PO ONE (14:00)
[2018-06-25] MEDS ORDERED: Chlorhexidine Gluconate 1 APPL/PKT TP ONE (14:50)
--- NOTE | 2018-06-25 14:55 | CP.PCM.PN ---
Subjective - Date & Time of Evaluation Date of Evaluation: 06/25/18 Time of Evaluation: 14:50 - Subjective Subjective: Pt much improved with present antibiotics cultures still pending temp amd wbc dowm, pt voiding well. A sepsis responding to present R x suggest continue RX pending culture results,Interval ct should be done at end of antibioticRX. Azucena Objective - Vital Signs/Intake and Output Vital Signs (last 24 hours): Temp Pulse Resp BP Pulse Ox 97.9 F 71 12 93/57 L 100 06/25/18 12:00 06/25/18 14:00 06/25/18 14:00 06/25/18 14:00 06/25/18 14:00 Intake and Output: 06/25/18 06/25/18 06:59 18:59 Intake Total 3050 1455 Output Total 800 Balance 2250 1455 - Medications Medications: Current Medications Acetaminophen (Tylenol 325mg Tab) 650 mg PO Q6 PRN PRN Reason: pain mild-moderate Glycerin (Glycerin Adult Suppository) 1 sup CA ONCE ONE Stop: 06/25/18 15:01 Last Admin: 06/25/18 14:48 Dose: 1 sup Meropenem 1 gm/ Sodium (Chloride) 100 mls @ 100 mls/hr IVPB Q8 NIC; Protocol Last Admin: 06/25/18 09:36 Dose: 100 mls/hr Lactated Ringer's (Lactated Ringer's) 1,000 mls @ 125 mls/hr IV .Q8H NIC Last Admin: 06/25/18 14:48 Dose: 125 mls/hr Potassium Chloride (K-Dur 20 Meq Er Tab) 20 meq PO BID NIC Stop: 06/26/18 17:01 Last Admin: 06/25/18 09:32 Dose: 20 meq Temazepam (Restoril) 30 mg PO HS PRN PRN Reason: Insomnia Last Admin: 06/24/18 20:51 Dose: 30 mg - Labs Labs: 06/25/18 04:30 06/25/18 04:30 PT 15.3 Seconds (9.8-13.1) H 06/25/18 04:30 INR 1.4 06/25/18 04:30 APTT 30.3 Seconds (25.6-37.1) 06/25/18 04:30
[2018-06-26] MEDS: Lactated Ringer's 1,000 ML IV SCH ×3 (00:50→22:01)
[2018-06-26] MEDS: Meropenem 1 GM in Sodium Chloride 0.9% 100 ML IVPB SCH ×3 (00:51→17:48)
--- NOTE | 2018-06-26 02:45 | CON ---
DATE: 06/24/2018 TIME: Approximately 6:30 p.m. CHIEF COMPLAINT: Sepsis. HISTORY OF PRESENT ILLNESS: The patient presented to the emergency room of [facility] with a history of shaking chills and fever. He was found to be hypotensive. He was admitted to the ICU. He has been placed on IV antibiotics. The patient has a history of having GreenLight laser prostatectomy on Thursday at [facility]. He was given prophylactic antibiotics, gentamicin and Cipro. In addition to the Cipro, , he was discharged on Cipro. Small catheter was removed on Thursday. The patient was afebrile at that time. He had no complaints until when he presented in the ER. The patient denies any difficulty of urination. He has urinated about 300 mL in the ED. He does have dysuria and feels cold, and has had shaking chills. SOCIAL HISTORY: Noncontributory. REVIEW OF SYSTEMS: RESPIRATORY: The patient has no respiratory complaints. GI: The patient has no GI complaints. CARDIOVASCULAR: The patient is hypotensive. No palpitations or chest pain. ORTHOPEDIC: Noncontributory. INTEGUMENT: Noncontributory. NEUROLOGIC: Noncontributory. PHYSICAL EXAMINATION: GENERAL: The patient is afebrile now, but has received antipyretics. VITAL SIGNS: The patient's blood pressure is approximately 90/60. Pulse is rapid. HEAD, EARS, EYES, NOSE, AND THROAT: Within normal limits. NECK: Supple. There are no bruits, nodes, or masses. CHEST: Clear bilaterally. There are no rales or rhonchi. HEART: Normal sinus rhythm. There is no murmur. There is slight tachycardia. Pulse is regular. ABDOMEN: Soft and nontender. Bladder is not palpably distended. There is no CVA tenderness. GENITALIA: Testicles, epididymis, and cord are normal. RECTAL: Examination shows no palpable tenderness or abscess. EXTREMITIES: Normal. SKIN: Warm to touch. ASSESSMENT: My impression is urosepsis. PLAN: Suggest continue present antibiotics. I have discussed the preliminary x-ray report with the radiologist, Dr. Mcneill. I do not see any abscess formation, simply normal postoperative changes. The significance of the small amount of air is unknown. We will follow with you. Hector Zeng MD [facility] # [id number]
[2018-06-26] MEDS: Potassium Chloride 20 mEq ER Tab PO SCH ×2 (09:28→17:47)
--- NOTE | 2018-06-26 14:21 | PN ---
DATE: 06/26/2018 SUBJECTIVE: The patient seen and examined. Interim events noted. The patient remains in progressive care unit, on telemetry monitoring. The patient feels okay. No chest pain. No shortness of breath. Urinary symptoms are improving. No abdominal pain or diarrhea. PHYSICAL EXAMINATION: GENERAL: The patient is in no acute distress. VITAL SIGNS: Stable. HEART: S1 and S2, normal and regular. LUNGS: Good bilateral air exchange. ABDOMEN: Soft, nontender. No sign of acute abdomen. No guarding. No rigidity. No rebound. EXTREMITIES: No edema. No calf swelling. No tenderness. No acute ischemia. ADVERTISING COLUMNIST: Exam is essentially unchanged. DIAGNOSTIC DATA: Available diagnostic data reviewed. Telemetry monitoring does not reveal significant arrhythmia. ASSESSMENT AND PLAN: Overall, the patient's general medical condition is stable. Plan as ordered. Ruben Newell MD
[2018-06-27] MEDS: Meropenem 1 GM in Sodium Chloride 0.9% 100 ML IVPB SCH ×3 (00:53→16:34)
[2018-06-27 07:10] LABS: HEMOGLOBIN 10.4 g/dL (12.0-18.0); MEAN CELL VOLUME 90.7 fl (80.0-94.0); MEAN CORPUSCULAR HEMOGLOBIN 31.3 pg (27.0-31.0); MEAN CORPUSCULAR HGB CONC 34.5 g/dL (33.0-37.0); RBC 3.33 Mil/uL (4.40-5.90); RED CELL DISTRIBUTION WIDTH 13.2 % (11.5-14.5); WHITE BLOOD COUNT 6.1 K/uL (4.8-10.8)
[2018-06-27 08:15] LABS: ALB/GLOB RATIO 0.9 (1.0-2.1); ALBUMIN 2.4 g/dL (3.5-5.0); ALT/SGPT 54 U/L (21-72); AST/SGOT 66 U/L (17-59); BLOOD UREA NITROGEN 11 mg/dl (9-20); CALCIUM 8.1 mg/dL (8.4-10.2); GFR NON-AFRICAN AMERICAN > 60
[2018-06-27] MEDS: Lactated Ringer's 1,000 ML IV SCH ×4 (08:43→22:50)
--- NOTE | 2018-06-27 12:22 | PN ---
DATE: 06/27/2018 SUBJECTIVE: The patient seen and examined. Interim events noted. The patient remains in progressive care unit, on telemetry monitoring. The patient is awake, responsive. Feels okay. No new complaint of chest pain or shortness of breath. His urinary symptoms improved. No burning or pain . No fevers. PHYSICAL EXAMINATION: GENERAL: The patient is in no acute distress. VITAL SIGNS: Stable. HEART: S1 and S2, normal and regular. LUNGS: Good bilateral air exchange. ABDOMEN: Soft and nontender. EXTREMITIES: No edema. No calf swelling. No tenderness. TRANSIT DRIVER: Exam is essentially unchanged. DIAGNOSTIC DATA: Available diagnostic data reviewed. ASSESSMENT AND PLAN: Overall, the patient's general medical condition is stable and improving. Telemetry monitoring does not reveal significant arrhythmia. Plan as ordered. Ruben Newell MD
--- NOTE | 2018-06-27 13:46 | CP.PCM.PN ---
Subjective - Date & Time of Evaluation Date of Evaluation: 06/27/18 Time of Evaluation: 07:00 - Subjective Subjective: urine + ESBL E Coli iv merrem in progress may need 14 days rx Objective - Vital Signs/Intake and Output Vital Signs (last 24 hours): Temp Pulse Resp BP Pulse Ox 97.3 F L 56 L 20 119/76 99 06/27/18 12:00 06/27/18 12:00 06/27/18 12:00 06/27/18 12:00 06/27/18 12:00 Intake and Output: 06/27/18 06/27/18 06:59 18:59 Intake Total 250 Output Total 400 Balance -150 - Medications Medications: Current Medications Acetaminophen (Tylenol 325mg Tab) 650 mg PO Q6 PRN PRN Reason: pain mild-moderate Meropenem 1 gm/ Sodium (Chloride) 100 mls @ 100 mls/hr IVPB Q8 NIC; Protocol Last Admin: 06/27/18 08:39 Dose: 100 mls/hr Lactated Ringer's (Lactated Ringer's) 1,000 mls @ 125 mls/hr IV .Q8H NIC Last Admin: 06/27/18 08:43 Dose: 125 mls/hr Sennosides (Senokot Tab) 17.2 mg PO HS PRN PRN Reason: Constipation Temazepam (Restoril) 30 mg PO HS PRN PRN Reason: Insomnia Last Admin: 06/24/18 20:51 Dose: 30 mg - Labs Labs: 06/27/18 06:18 06/27/18 06:18 PT 15.3 Seconds (9.8-13.1) H 06/25/18 04:30 INR 1.4 06/25/18 04:30 APTT 30.3 Seconds (25.6-37.1) 06/25/18 04:30 - Constitutional Appears: Non-toxic, Chronically Ill - Head Exam Head Exam: NORMOCEPHALIC - Eye Exam Eye Exam: PERRL - ENT Exam ENT Exam: Mucous Membranes Dry - Neck Exam Neck Exam: absent: Lymphadenopathy - Respiratory Exam Respiratory Exam: Decreased Breath Sounds - Cardiovascular Exam Cardiovascular Exam: REGULAR RHYTHM - GI/Abdominal Exam GI & Abdominal Exam: Distended, Soft - Rectal Exam Rectal Exam: Deferred - Exam Exam: NORMAL INSPECTION Assessment and Plan - Assessment and Plan (Free Text) Assessment: urine + ESBL E Coli iv merrem in progress may need 14 days rx
[2018-06-28] MEDS: Meropenem 1 GM in Sodium Chloride 0.9% 100 ML IVPB SCH ×3 (00:43→16:01)
[2018-06-28 05:36] LABS: HEMOGLOBIN 11.2 g/dL (12.0-18.0); MEAN CELL VOLUME 90.9 fl (80.0-94.0); MEAN CORPUSCULAR HEMOGLOBIN 30.6 pg (27.0-31.0); MEAN CORPUSCULAR HGB CONC 33.7 g/dL (33.0-37.0); RBC 3.67 Mil/uL (4.40-5.90); RED CELL DISTRIBUTION WIDTH 13.5 % (11.5-14.5); WHITE BLOOD COUNT 6.3 K/uL (4.8-10.8)
[2018-06-28 05:41] LABS: ALB/GLOB RATIO 0.9 (1.0-2.1); ALBUMIN 2.9 g/dL (3.5-5.0); ALT/SGPT 77 U/L (21-72); AST/SGOT 72 U/L (17-59); BLOOD UREA NITROGEN 13 mg/dl (9-20); CALCIUM 8.6 mg/dL (8.4-10.2); GFR NON-AFRICAN AMERICAN > 60
[2018-06-28] MEDS: Lactated Ringer's 1,000 ML IV SCH ×3 (08:13→16:07)
--- NOTE | 2018-06-28 11:52 | CP.PCM.PCO ---
Assessment & Plan - Assessment and Plan (Free Text) Assessment: pt. doing well, denies fever, chills , sob, dysuria, afebrile pt. will require 11 more days of Merrem 500 mg iv q 8 from day of admission to TCU per recommendation- for ESBL Ecoli UTI pt. is agreeable to TCU, f/u with , and in TCU
[2018-06-28 12:18] VITALS: TEMP 98
--- NOTE | 2018-06-28 13:25 | PN ---
DATE: 06/28/2018 SUBJECTIVE: The patient seen and examined. Interim events noted. Consults noted and appreciated. Infectious Disease followup and intervention noted and appreciated. The patient remains in progressive care unit, on telemetry monitoring in isolation room. The patient feels okay. Denies any chest pain, shortness of breath, fever, or any urinary symptoms. PHYSICAL EXAMINATION: GENERAL: The patient is in no acute distress. VITAL SIGNS: Stable. HEART: S1 and S2, normal and regular. LUNGS: Good bilateral air exchange. ABDOMEN: Soft, nontender. No organomegaly. No fluid. Bowel sounds are plus and normal. No suprapubic tenderness. No guarding. No rigidity. No rebound. EXTREMITIES: No edema. No calf swelling. No tenderness. No acute ischemia. STAFF ENGINEER: Exam is essentially unchanged. DIAGNOSTIC DATA: Available diagnostic data reviewed. ASSESSMENT AND PLAN: Overall, the patient's general medical condition is stable and improving. The patient might need two weeks of intravenous antibiotic as per Infectious Disease. Plan as ordered. Case and plan discussed with the patient. Ruben Newell MD
[2018-06-28 15:38] VITALS: BP 128/81; PULSE 60; RESP 20; O2SAT 97
== END 2018-06-28 18:40 | DRG 862 ==
LOC: H.ER 10:50 → H.ERHOLD 14:05 → H.ICU/CCU 16:57 → H.TEL 06-25 15:15
PROVIDERS: ADMIT Internal Medicine; ATTEND Internal Medicine
DX: T81.44XA Sepsis following a procedure, initial encounter (principal); A41.9 Sepsis, unspecified organism; R65.21 Severe sepsis with septic shock; N39.0 Urinary tract infection, site not specified; Z86.010 Personal history of colon polyps; K59.00 Constipation, unspecified; M19.90 Unspecified osteoarthritis, unspecified site; Z79.84 Long term (current) use of oral hypoglycemic drugs; I95.9 Hypotension, unspecified; R31.9 Hematuria, unspecified; E11.9 Type 2 diabetes mellitus without complications; E78.00 Pure hypercholesterolemia, unspecified; E78.5 Hyperlipidemia, unspecified; I10 Essential (primary) hypertension; N40.1 Benign prostatic hyperplasia with lower urinary tract symptoms; R33.8 Other retention of urine; B96.20 Unspecified Escherichia coli [E. coli] as the cause of diseases classified elsewhere

== ENCOUNTER 2018-06-28 17:27 | Inpatient (IN) | payer MEDICARE ==
[2018-06-28 18:55] VITALS: BMI 24.0
[2018-06-29] MEDS: Meropenem 500 MG in Sodium Chloride 0.9% 100 ML IVPB SCH ×3 (00:29→16:17)
[2018-06-29] MEDS ORDERED: Patient's Own Med (Meropenem 500 Mg In Ns [Merrem Iv 500 Mg/Ns 50 Ml] 500 MG) IV SCH (01:00)
[2018-06-29 07:11] LABS: HEMOGLOBIN 11.2 g/dL (12.0-18.0); MEAN CELL VOLUME 91.2 fl (80.0-94.0); MEAN CORPUSCULAR HEMOGLOBIN 31.1 pg (27.0-31.0); MEAN CORPUSCULAR HGB CONC 34.1 g/dL (33.0-37.0); RBC 3.61 Mil/uL (4.40-5.90); RED CELL DISTRIBUTION WIDTH 13.4 % (11.5-14.5); WHITE BLOOD COUNT 7.2 K/uL (4.8-10.8)
[2018-06-29 07:42] LABS: BLOOD UREA NITROGEN 13 mg/dl (9-20); GFR NON-AFRICAN AMERICAN > 60
[2018-06-29 07:43] LABS: ALBUMIN 2.9 g/dL (3.5-5.0); ALT/SGPT 68 U/L (21-72); AST/SGOT 54 U/L (17-59); CALCIUM 8.5 mg/dL (8.4-10.2)
--- NOTE | 2018-06-29 08:00 | CP.PCM.HP ---
<Sultan Pamela - Last Filed: 06/29/18 09:50> History of Present Illness - History of Present Illness History of Present Illness: Pt is a 68 y/o male with hx of BPH s/p prostate laser ablation on 06/21/18 and sepsis admitted to TCU for completion of IV antibiotic for ESBL E. coli sepsis. Patient was admitted to ICU for sepsis on 06/24/18. Patients urine cx grew ESBL E. coli sensitive to meropenem. Patient has been receiving Meropenem since 06/24/18. Per ID recommendation, patient needs total 14 days of IV meropenem. Denies any complaints today. PMHx: HTN, NIDDM, BPH PSurgHx: Green Laser Therapy 3 days ago, Prostate States he has had mutliple prostate-related surgeries but cannot specify Social: Non smoker Present on Admission - Present on Admission Any Indicators Present on Admission: No Review of Systems - Review of Systems All systems: reviewed and no additional remarkable complaints except (as mentioned in HPI) Past Patient History - Infectious Disease Hx of Infectious Diseases: None - Past Medical History & Family History Past Medical History?: Yes - Past Social History Smoking Status: Never Smoked - CARDIAC Hx Hypercholesterolemia: Yes (no longer) Hx Hypertension: Yes - PULMONARY Hx Respiratory Disorders: No - NEUROLOGICAL Hx Neurological Disorder: No - HEENT Hx HEENT Problems: Yes Other/Comment: Uses glasses for near and far sightness. - RENAL Hx Chronic Kidney Disease: No - ENDOCRINE/METABOLIC Hx Endocrine Disorders: Yes Hx Diabetes Mellitus Type 2: Yes - HEMATOLOGICAL/ONCOLOGICAL Hx Blood Disorders: No - INTEGUMENTARY Hx Dermatological Problems: No - MUSCULOSKELETAL/RHEUMATOLOGICAL Hx Musculoskeletal Disorders: Yes Hx Arthritis: Yes Hx Falls: No - GASTROINTESTINAL Hx Gastrointestinal Disorders: Yes Hx Constipation: Yes - GENITOURINARY/GYNECOLOGICAL Hx Genitourinary Disorders: Yes Hx Prostate Problems: Yes - PSYCHIATRIC Hx Substance Use: No - SURGICAL HISTORY Hx Surgeries: Yes Hx Herniorrhaphy: Yes (umbilical and right ing) Other/Comment: HX:green light laser. HX: CYSTOSCOPY(06/07/18) - ANESTHESIA Hx Anesthesia: Yes Hx Anesthesia Reactions: Yes (NAUSEA/VOMITING) Hx Malignant Hyperthermia: No Meds Allergies/Adverse Reactions: Allergies Allergy/AdvReac Type Severity Reaction Status Date / Time No Known Allergies Allergy Verified 06/28/18 18:55 Physical Exam - Constitutional Appears: Well, Non-toxic, No Acute Distress - Head Exam Head Exam: ATRAUMATIC, NORMAL INSPECTION - Eye Exam Eye Exam: Normal appearance - ENT Exam ENT Exam: Mucous Membranes Moist - Respiratory Exam Respiratory Exam: Clear to Auscultation Bilateral, NORMAL BREATHING PATTERN. absent: Rhonchi, Wheezes - Cardiovascular Exam Cardiovascular Exam: REGULAR RHYTHM, RRR, +S1, +S2 - GI/Abdominal Exam GI & Abdominal Exam: Normal Bowel Sounds, Soft. absent: Tenderness - Extremities Exam Extremities exam: Positive for: normal inspection. Negative for: calf tenderness - Back Exam Back exam: absent: CVA tenderness (L), CVA tenderness (R) - Neurological Exam Neurological exam: Alert, Oriented x3 - Psychiatric Exam Psychiatric exam: Normal Affect, Normal Mood - Skin Skin Exam: Normal Color, Warm Results - Vital Signs Recent Vital Signs: Last Vital Signs Temp 98.2 F 06/28/18 19:49 Pulse 65 06/28/18 19:49 Resp 20 06/28/18 19:49 BP 133/85 06/28/18 19:49 Pulse Ox 100 06/28/18 19:49 - Labs Result Diagrams: 06/29/18 06:00 06/29/18 06:00 Labs: Laboratory Results - last 24 hr 06/28/18 06/29/18 06/29/18 20:48 06:00 06:00 WBC 7.2 RBC 3.61 L Hgb 11.2 L Hct 33.0 L MCV 91.2 MCH 31.1 H MCHC 34.1 RDW 13.4 Plt Count 117 L Sodium 141 Potassium 4.0 Chloride 109 H Carbon Dioxide 27 Anion Gap 9 L BUN 13 Creatinine 0.9 Est GFR ( Amer) > 60 Est GFR (Non-Af Amer) > 60 POC Glucose (mg/dL) 106 Random Glucose 96 Calcium 8.5 Phosphorus 2.7 Magnesium 2.1 Total Bilirubin 0.4 AST 54 ALT 68 Alkaline Phosphatase 52 Total Protein 5.9 L Albumin 2.9 L Globulin 3.0 Albumin/Globulin Ratio 1.0 06/29/18 06:36 WBC RBC Hgb Hct MCV MCH MCHC RDW Plt Count Sodium Potassium Chloride Carbon Dioxide Anion Gap BUN Creatinine Est GFR ( Amer) Est GFR (Non-Af Amer) POC Glucose (mg/dL) 92 Random Glucose Calcium Phosphorus Magnesium Total Bilirubin AST ALT Alkaline Phosphatase Total Protein Albumin Globulin Albumin/Globulin Ratio Assessment & Plan - Assessment and Plan (Free Text) Assessment: Assessment: Pt is a 68 y/o male with hx of BPH s/p prostate laser ablation on 06/21/18 admitted to TCU for completion of IV antibiotic for ESBL E. coli sepsis. Plan: -continue with Meropenem 500 mg IVPB q8h -Urologist Dr. Zeng on board -ID on board -c/w home medications. -PT/OT Patient seen and examined with Dr. Newell during rounds this AM. Sultan Santiago, [id number] <Ruben Newell - Last Filed: 06/30/18 20:35> Results - Vital Signs Recent Vital Signs: Last Vital Signs Temp 98.6 F 06/30/18 16:25 Pulse 65 06/30/18 16:25 Resp 20 06/30/18 16:25 BP 106/69 06/30/18 16:25 Pulse Ox 100 06/30/18 16:25 - Labs Result Diagrams: 06/29/18 06:00 06/29/18 06:00 Labs: Laboratory Results - last 24 hr 06/29/18 06/30/18 06/30/18 20:49 06:08 10:53 POC Glucose (mg/dL) 104 88 104 06/30/18 16:15 POC Glucose (mg/dL) 94 Assessment & Plan - Assessment and Plan (Free Text) Assessment: Patient was personally seen and examined by me in rounds with residents. Available labs and diagnostic data reviewed. Case, Patient's condition and management plan discussed with residents in rounds. Agree with resident's progress note. Plan: As ordered.
[2018-06-29] MEDS ORDERED: Lactulose 10 gm/15 ml (Rectal Use) PR SCH (09:00)
[2018-06-29] MEDS ORDERED: HYDROCHLOROTHIAZIDE PO SCH (09:00)
[2018-06-29] MEDS ORDERED: [UNRECOGNIZED DRUG - OTHER] PO SCH (09:00)
[2018-06-29] MEDS ORDERED: LISINOPRIL PO SCH (09:00)
[2018-06-29] MEDS: Lactulose 10 gm/15 ml Syrup PO SCH (09:23)
--- NOTE | 2018-06-29 11:18 | CP.PCM.CON ---
History of Present Illness - History of Present Illness History of Present Illness: Pt is a 68 y/o male with hx of BPH s/p[ Prostate Laser Ablation who came to ED with complaints of fever/chills, night sweats, and generalized weakness. States he has also been having small hematuria which he was told would be expected by urologist given recent procedure. developed sepsis and hypotension found to have ESBL E Coli sepsis /UTI transferred to TCU for further rx still has burning dysuria PMHx: HTN, NIDDM, BPH PSurgHx: Green Laser Therapy 3 days ago, Prostate States he has had mutliple prostate-related surgeries but cannot specify Social: Non smoker Review of Systems - Review of Systems All systems: reviewed and no additional remarkable complaints except - Constitutional Constitutional: As Per HPI - EENT Eyes: absent: As Per HPI, Blind Spots, Blurred Vision, Change in Vision, Decreased Night Vision, Diplopia, Discharge, Dry Eye, Exophthalmos, Floaters, Irritation, Itchy Eyes, Loss of Peripheral Vision, Pain, Photophobia, Requires Corrective Lenses, Sees Flashes, Spots in Vision, Tunnel Vision, Other Visual Disturbances, Loss of Vision, Other Ears: absent: As Per HPI, Decreased Hearing, Ear Discharge, Ear Pain, Tinnitus, Abnormal Hearing, Disequilibrium, Dizziness, Other Nose/Mouth/Throat: absent: As Per HPI, Epistaxis, Nasal Congestion, Nasal Discharge, Nasal Obstruction, Nasal Trauma, Nose Pain, Post Nasal Drip, Sinus Pain, Sinus Pressure, Bleeding Gums, Change in Voice, Dental Pain, Dry Mouth, Dysphagia, Halitosis, Hoarsness, Lip Swelling, Mouth Lesions, Mouth Pain, Odynophagia, Sore Throat, Throat Swelling, Tongue Swelling, Facial Pain, Neck Pain, Neck Mass, Other - Cardiovascular Cardiovascular: absent: As Per HPI, Acrocyanosis, Chest Pain, Chest Pain at Rest, Chest Pain with Activity, Claudication, Diaphoresis, Dyspnea, Dyspnea on Exertion, Edema, Irregular Heart Rhythm, Pain Radiating to Arm/Neck/Jaw, Leg Edema, Leg Ulcers, Lightheadedness, Orthopnea, Palpitations, Paroxysmal Nocturnal Dyspnea, Pedal Edema, Radiating Pain, Rapid Heart Rate, Slow Heart Rate, Syncope, Other - Respiratory Respiratory: absent: As Per HPI, Cough, Dyspnea, Hemoptysis, Dyspnea on Exertion, Wheezing, Snoring, Stridor, Pain on Inspiration, Chest Congestion, Excessive Mucous Production, Change in Mucous Color, Pain with Coughing, Other - Gastrointestinal Gastrointestinal: absent: As Per HPI, Abdominal Pain, Belching, Bloating, Change in Bowel Habits, Change in Stool Character, Coffee Ground Emesis, Constipation, Cramping, Diarrhea, Dyspepsia, Dysphagia, Early Satiety, Excessive Flatus, Fecal Incontinence, Heartburn, Hematemesis, Hematochezia, Loose Stools, Melena, Nausea, Odynophagia, Temesmus, Vomiting, Other - Genitourinary Genitourinary: As Per HPI - Musculoskeletal Musculoskeletal: absent: As Per HPI, Abnormal Gait, Arthralgias, Atrophy, Back Pain, Deformity, Joint Swelling, Limited Range of Motion, Loss of Height, Muscle Cramps, Muscle Weakness, Myalgias, Neck Pain, Numbness, Radiating Pain into Limb, Stiffness, Tingling, Other - Integumentary Integumentary: absent: As Per HPI, Acne, Alopecia, Bleeding Lesions, Change in Hair, Change in Nails, Change in Pigmentation, Changing Lesions, Dry Skin, Erythema, Furuncle, Hirsutism, Lesions, New Lesions, Non-Healing Lesions, Photosensitivity, Pruritus, Rash, Skin Pain, Skin Ulcer, Sores, Striae, Swe lling, Unusual Bruising, Wounds, Jaundice, Other - Neurological Neurological: absent: As Per HPI, Abnormal Gait, Abnormal Hearing, Abnormal Movements, Abnormal Speech, Behavioral Changes, Burning Sensations, Confusion, Convulsions, Disequilibrium, Dizziness, Numbness, Focal Weakness, Frequent Falls, Headaches, Lack of Coordination, Loss of Vision, Memory Loss, Paresthesias, Radicular Pain, Restless Legs, Sensory Deficit, Syncope, Tingling, Tremor, Vertigo, Weakness, Other Visual Disturbances, Other - Psychiatric Psychiatric: absent: As Per HPI, Abnormal Sleep Pattern, Anhedonia, Anxiety, Auditory Hallucinations, Behavioral Changes, Change in Appetite, Change in Libido, Confusion, Depression, Difficulty Concentrating, Hallucinations, Homicidal Ideation, Hopelessness, Irritability, Memory Loss, Mood Swings, Panic Attacks, Paranoia, Suicidal Ideation, Visual Hallucinations, Tactile Hallucinations, Other - Endocrine Endocrine: absent: As Per HPI, Change in Body Appearance, Change in Libido, Cold Intolorance, Deepening of Voice, Excessive Sweating, Fatigue, Flushing, Heat Intolorance, Increase in Ring/Shoe/Hat Size, Palpitations, Polydipsia, Polyphagia, Polyuria, Other - Hematologic/Lymphatic Hematologic: absent: As Per HPI, Easy Bleeding, Easy Bruising, Lymphadenopathy, Other Past Patient History - Infectious Disease Hx of Infectious Diseases: None - Past Medical History & Family History Past Medical History?: Yes - Past Social History Smoking Status: Never Smoked - CARDIAC Hx Hypercholesterolemia: Yes (no longer) Hx Hypertension: Yes - PULMONARY Hx Respiratory Disorders: No - NEUROLOGICAL Hx Neurological Disorder: No - HEENT Hx HEENT Problems: Yes Other/Comment: Uses glasses for near and far sightness. - RENAL Hx Chronic Kidney Disease: No - ENDOCRINE/METABOLIC Hx Endocrine Disorders: Yes Hx Diabetes Mellitus Type 2: Yes - HEMATOLOGICAL/ONCOLOGICAL Hx Blood Disorders: No - INTEGUMENTARY Hx Dermatological Problems: No - MUSCULOSKELETAL/RHEUMATOLOGICAL Hx Musculoskeletal Disorders: Yes Hx Arthritis: Yes Hx Falls: No - GASTROINTESTINAL Hx Gastrointestinal Disorders: Yes Hx Constipation: Yes - GENITOURINARY/GYNECOLOGICAL Hx Genitourinary Disorders: Yes Hx Prostate Problems: Yes - PSYCHIATRIC Hx Substance Use: No - SURGICAL HISTORY Hx Surgeries: Yes Hx Herniorrhaphy: Yes (umbilical and right ing) Other/Comment: HX:green light laser. HX: CYSTOSCOPY(06/07/18) - ANESTHESIA Hx Anesthesia: Yes Hx Anesthesia Reactions: Yes (NAUSEA/VOMITING) Hx Malignant Hyperthermia: No Meds Allergies/Adverse Reactions: Allergies Allergy/AdvReac Type Severity Reaction Status Date / Time No Known Allergies Allergy Verified 06/28/18 18:55 - Medications Medications: Current Medications Acetaminophen (Tylenol 325mg Tab) 650 mg PO Q6 PRN PRN Reason: pain mild-moderate Aspirin (Ecotrin) 81 mg PO DAILY [facility] Last Admin: 06/29/18 09:23 Dose: Not Given Atorvastatin Calcium (Lipitor) 10 mg PO HS [facility] Last Admin: 06/28/18 21:19 Dose: Not Given Hydrochlorothiazide (Hydrodiuril) 25 mg PO DAILY [facility] Last Admin: 06/29/18 09:23 Dose: 25 mg Meropenem 500 mg/ Sodium (Chloride) 100 mls @ 100 mls/hr IVPB Q8 [facility] Last Admin: 06/29/18 09:24 Dose: 100 mls/hr Lactulose (Enulose) 10 gm PO DAILY [facility] Last Admin: 06/29/18 09:23 Dose: 10 gm Lisinopril (Zestril) 20 mg PO DAILY [facility] Last Admin: 06/29/18 09:23 Dose: 20 mg Metformin HCl (Glucophage) 500 mg PO DAILY [facility] Last Admin: 06/29/18 09:23 Dose: 500 mg Sennosides (Senokot Tab) 17.2 mg PO HS PRN PRN Reason: Constipation Physical Exam - Constitutional Appears: No Acute Distress, Chronically Ill - Head Exam Head Exam: ATRAUMATIC, NORMOCEPHALIC - Eye Exam Eye Exam: PERRL. absent: Scleral icterus - ENT Exam ENT Exam: Mucous Membranes Dry - Neck Exam Neck exam: Negative for: Lymphadenopathy - Respiratory Exam Respiratory Exam: Decreased Breath Sounds - Cardiovascular Exam Cardiovascular Exam: REGULAR RHYTHM - GI/Abdominal Exam GI & Abdominal Exam: Diminished Bowel Sounds - Rectal Exam Rectal Exam: Deferred - Exam Exam: NORMAL INSPECTION - Extremities Exam Extremities exam: Negative for: pedal edema - Back Exam Back exam: absent: CVA tenderness (L), CVA tenderness (R) - Neurological Exam Neurological exam: Alert, CN II-XII Intact, Oriented x3, Reflexes Normal - Psychiatric Exam Psychiatric exam: Normal Mood - Skin Skin Exam: Dry Results - Vital Signs Recent Vital Signs: Last Vital Signs Temp 97.9 F 06/29/18 08:05 Pulse 65 06/29/18 09:23 Resp 20 06/29/18 08:05 BP 115/75 06/29/18 09:23 Pulse Ox 99 06/29/18 08:05 - Labs Result Diagrams: 06/29/18 06:00 06/29/18 06:00 Labs: Laboratory Results - last 24 hr 06/28/18 06/29/18 06/29/18 20:48 06:00 06:00 WBC 7.2 RBC 3.61 L Hgb 11.2 L Hct 33.0 L MCV 91.2 MCH 31.1 H MCHC 34.1 RDW 13.4 Plt Count 117 L Sodium 141 Potassium 4.0 Chloride 109 H Carbon Dioxide 27 Anion Gap 9 L BUN 13 Creatinine 0.9 Est GFR ( Amer) > 60 Est GFR (Non-Af Amer) > 60 POC Glucose (mg/dL) 106 Random Glucose 96 Calcium 8.5 Phosphorus 2.7 Magnesium 2.1 Total Bilirubin 0.4 AST 54 ALT 68 Alkaline Phosphatase 52 Total Protein 5.9 L Albumin 2.9 L Globulin 3.0 Albumin/Globulin Ratio 1.0 06/29/18 06/29/18 06:36 11:13 WBC RBC Hgb Hct MCV MCH MCHC RDW Plt Count Sodium Potassium Chloride Carbon Dioxide Anion Gap BUN Creatinine Est GFR ( Amer) Est GFR (Non-Af Amer) POC Glucose (mg/dL) 92 108 Random Glucose Calcium Phosphorus Magnesium Total Bilirubin AST ALT Alkaline Phosphatase Total Protein Albumin Globulin Albumin/Globulin Ratio Assessment & Plan (1) History of ESBL E. coli infection Status: Acute (2) History of ESBL E. coli infection Status: Acute (3) Sepsis Status: Acute - Assessment and Plan (Free Text) Assessment: cont iv rx for min 14 days total
[2018-06-30] MEDS: Meropenem 500 MG in Sodium Chloride 0.9% 100 ML IVPB SCH ×3 (01:42→17:21)
--- NOTE | 2018-06-30 06:43 | CP.PCM.PN ---
Subjective - Date & Time of Evaluation Date of Evaluation: 06/30/18 Time of Evaluation: 06:40 - Subjective Subjective: [place] [facility] [place] developed sepsis improved with antibiotics. Pt is voiding well no gu intervention planned on this admission pt should follow up in our office within 1 month of discharge. Azucena Objective - Vital Signs/Intake and Output Vital Signs (last 24 hours): Temp Pulse Resp BP Pulse Ox 98.6 F 66 20 118/74 100 06/29/18 19:56 06/29/18 19:56 06/29/18 19:56 06/29/18 19:56 06/29/18 19:56 - Medications Medications: Current Medications Acetaminophen (Tylenol 325mg Tab) 650 mg PO Q6 PRN PRN Reason: pain mild-moderate Aspirin (Ecotrin) 81 mg PO DAILY [facility] Last Admin: 06/29/18 09:23 Dose: Not Given Atorvastatin Calcium (Lipitor) 10 mg PO HS [facility] Last Admin: 06/29/18 21:05 Dose: 10 mg Hydrochlorothiazide (Hydrodiuril) 25 mg PO DAILY [facility] Last Admin: 06/29/18 09:23 Dose: 25 mg Meropenem 500 mg/ Sodium (Chloride) 100 mls @ 100 mls/hr IVPB Q8 [facility] Last Admin: 06/30/18 01:42 Dose: 100 mls/hr Lactulose (Enulose) 10 gm PO DAILY [facility] Last Admin: 06/29/18 09:23 Dose: 10 gm Lisinopril (Zestril) 20 mg PO DAILY [facility] Last Admin: 06/29/18 09:23 Dose: 20 mg Metformin HCl (Glucophage) 500 mg PO DAILY [facility] Last Admin: 06/29/18 09:23 Dose: 500 mg Sennosides (Senokot Tab) 17.2 mg PO HS PRN PRN Reason: Constipation - Labs Labs: 06/29/18 06:00 06/29/18 06:00
[2018-06-30] MEDS: Lactulose 10 gm/15 ml Syrup PO SCH (09:05)
--- NOTE | 2018-06-30 12:51 | PN ---
DATE: 06/30/2018 SUBJECTIVE: The patient seen and examined. Interim events noted. The patient remains in transitional care unit. Infectious Disease and Urology followup and intervention noted and appreciated. The patient feels okay. Denies any specific complaint. No chest pain, shortness of breath, urinary symptoms or fevers. PHYSICAL EXAMINATION: GENERAL: The patient is in no acute distress. VITAL SIGNS: Stable. HEART: S1 and S2, normal and regular. LUNGS: Good bilateral air exchange. ABDOMEN: Soft and nontender. EXTREMITIES: No edema. No calf swelling. No tenderness. No acute ischemia. HOME CARE PHYSICAL THERAPIST: Exam is essentially unchanged. DIAGNOSTIC DATA: Available diagnostic data reviewed. ASSESSMENT AND PLAN: Overall, the patient's general medical condition stable. Plan as ordered. Ruben Newell MD
[2018-07-01] MEDS: Meropenem 500 MG in Sodium Chloride 0.9% 100 ML IVPB SCH ×3 (01:11→16:28)
[2018-07-01] MEDS: Lactulose 10 gm/15 ml Syrup PO SCH (09:10)
--- NOTE | 2018-07-01 19:05 | CP.PCM.PN ---
Subjective - Date & Time of Evaluation Date of Evaluation: 07/01/18 Time of Evaluation: 08:00 - Subjective Subjective: still has burning but no fever Objective - Vital Signs/Intake and Output Vital Signs (last 24 hours): Temp Pulse Resp BP Pulse Ox 97.7 F 65 20 99/61 L 100 07/01/18 16:24 07/01/18 16:24 07/01/18 16:24 07/01/18 16:24 07/01/18 16:24 - Medications Medications: Current Medications Acetaminophen (Tylenol 325mg Tab) 650 mg PO Q6 PRN PRN Reason: pain mild-moderate Aspirin (Ecotrin) 81 mg PO DAILY [facility] Last Admin: 06/30/18 09:15 Dose: Not Given Atorvastatin Calcium (Lipitor) 10 mg PO HS [facility] Last Admin: 06/30/18 21:12 Dose: 10 mg Hydrochlorothiazide (Hydrodiuril) 25 mg PO DAILY [facility] Last Admin: 07/01/18 09:13 Dose: 25 mg Meropenem 500 mg/ Sodium (Chloride) 100 mls @ 100 mls/hr IVPB Q8 [facility] Last Admin: 07/01/18 16:28 Dose: 100 mls/hr Lactulose (Enulose) 10 gm PO DAILY [facility] Last Admin: 07/01/18 09:10 Dose: 10 gm Lisinopril (Zestril) 20 mg PO DAILY [facility] Last Admin: 07/01/18 09:13 Dose: 20 mg Metformin HCl (Glucophage) 500 mg PO DAILY [facility] Last Admin: 07/01/18 09:13 Dose: 500 mg Sennosides (Senokot Tab) 17.2 mg PO HS PRN PRN Reason: Constipation - Labs Labs: 06/29/18 06:00 06/29/18 06:00 - Constitutional Appears: Non-toxic, Chronically Ill - Head Exam Head Exam: NORMOCEPHALIC - Eye Exam Eye Exam: PERRL - ENT Exam ENT Exam: Mucous Membranes Dry - Neck Exam Neck Exam: absent: Lymphadenopathy - Respiratory Exam Respiratory Exam: Decreased Breath Sounds - Cardiovascular Exam Cardiovascular Exam: REGULAR RHYTHM - GI/Abdominal Exam GI & Abdominal Exam: Distended, Soft - Rectal Exam Rectal Exam: Deferred - Exam Exam: NORMAL INSPECTION Assessment and Plan (1) History of ESBL E. coli infection Status: Acute (2) History of ESBL E. coli infection Status: Acute (3) Sepsis Status: Acute - Assessment and Plan (Free Text) Assessment: cont iv rx min 14 days then po nitrofurantoin for 14 days Plan: will repeat cultures and U/A
[2018-07-02] MEDS: Meropenem 500 MG in Sodium Chloride 0.9% 100 ML IVPB SCH ×3 (00:56→16:25)
[2018-07-02 07:56] LABS: URINE BACTERIA RARE (<OCC); URINE BILIRUBIN NEGATIVE (NEGATIVE); URINE BLOOD MODERATE (NEGATIVE); URINE CLARITY CLEAR (Clear); URINE COLOR STRAW (YELLOW); URINE GLUCOSE (UA) NEG (Normal); URINE LEUKOCYTE ESTERASE TRACE Leu/uL (Negative); URINE PROTEIN NEGATIVE (NEGATIVE); URINE UROBILINOGEN 0.2-1.0 mg/dL (0.2-1.0)
[2018-07-02] MEDS: Lactulose 10 gm/15 ml Syrup PO SCH (08:16)
--- NOTE | 2018-07-02 11:18 | PN ---
DATE: 07/02/2018 SUBJECTIVE: The patient seen and examined. Interim events noted. The patient remains in transitional care unit. Feels okay. Denies any chest pain or shortness of breath. PHYSICAL EXAMINATION: GENERAL: The patient is in no acute distress. VITAL SIGNS: Stable. HEART: S1, S2, normal and regular. LUNGS: Good bilateral air exchange. ABDOMEN: Soft, nontender. EXTREMITIES: No edema. No calf swelling. No tenderness. No acute ischemia. CARDIOLOGY TECHNICIAN: Essentially unchanged. DIAGNOSTIC DATA: Available diagnostic data reviewed. ASSESSMENT AND PLAN: Infectious disease followup and intervention noted and appreciated. Overall, the patient's general medical condition is stable. Plan as ordered. Ruben Newell MD
[2018-07-03] MEDS: Meropenem 500 MG in Sodium Chloride 0.9% 100 ML IVPB SCH ×3 (00:25→16:41)
--- NOTE | 2018-07-03 09:04 | PN ---
DATE: 07/03/2018 SUBJECTIVE: The patient seen and examined. Interim events noted. The patient remains in transitional care unit. The patient is sleeping, arousable. Denies any specific complaint. No specific issue reported by nursing staff. PHYSICAL EXAMINATION: GENERAL: The patient is in no acute distress. VITAL SIGNS: Stable. Physical exam is essentially unchanged. DIAGNOSTIC DATA: Available diagnostic data reviewed. ASSESSMENT AND PLAN: Overall, the patient's general medical condition is stable. Plan as ordered. Ruben Newell MD
[2018-07-03] MEDS: Lactulose 10 gm/15 ml Syrup PO SCH (09:12)
[2018-07-04] MEDS: Meropenem 500 MG in Sodium Chloride 0.9% 100 ML IVPB SCH ×3 (00:14→16:21)
[2018-07-04] MEDS: Lactulose 10 gm/15 ml Syrup PO SCH (08:14)
--- NOTE | 2018-07-04 12:05 | PN ---
DATE: 07/04/2018 SUBJECTIVE: The patient seen and examined. Interim events noted. The patient remains in transitional care unit. No specific complaint. No specific issue reported by nursing staff. PHYSICAL EXAMINATION: GENERAL: The patient is in no acute distress. VITAL SIGNS: Stable. Physical exam is essentially unchanged. DIAGNOSTIC DATA: Available diagnostic data reviewed. Telemetry monitoring does not reveal significant arrhythmia. Urine culture is negative. ASSESSMENT AND PLAN: Overall, the patient is clinically stable. Plan as ordered. Ruben Newell MD
--- NOTE | 2018-07-04 14:16 | CP.PCM.PN ---
Subjective - Date & Time of Evaluation Date of Evaluation: 07/04/18 Time of Evaluation: 07:00 - Subjective Subjective: repeat urine c/s neg still has burning and U/a abnormal Objective - Vital Signs/Intake and Output Vital Signs (last 24 hours): Temp Pulse Resp BP Pulse Ox 98.6 F 66 20 101/65 100 07/04/18 08:08 07/04/18 08:14 07/04/18 08:08 07/04/18 08:14 07/04/18 08:08 - Medications Medications: Current Medications Acetaminophen (Tylenol 325mg Tab) 650 mg PO Q6 PRN PRN Reason: pain mild-moderate Aspirin (Ecotrin) 81 mg PO DAILY [facility] Last Admin: 06/30/18 09:15 Dose: Not Given Atorvastatin Calcium (Lipitor) 10 mg PO HS [facility] Last Admin: 07/03/18 21:13 Dose: 10 mg Bisacodyl (Dulcolax) 10 mg [place] DAILY PRN PRN Reason: Constipation Last Admin: 07/03/18 16:14 Dose: 10 mg Hydrochlorothiazide (Hydrodiuril) 25 mg PO DAILY [facility] Last Admin: 07/04/18 08:14 Dose: 25 mg Meropenem 500 mg/ Sodium (Chloride) 100 mls @ 100 mls/hr IVPB Q8 [facility] Last Admin: 07/04/18 08:14 Dose: 100 mls/hr Lactulose (Enulose) 10 gm PO DAILY [facility] Last Admin: 07/04/18 08:14 Dose: 10 gm Lisinopril (Zestril) 20 mg PO DAILY [facility] Last Admin: 07/04/18 08:14 Dose: 20 mg Metformin HCl (Glucophage) 500 mg PO DAILY [facility] Last Admin: 07/04/18 08:14 Dose: 500 mg Sennosides (Senokot Tab) 17.2 mg PO HS PRN PRN Reason: Constipation - Labs Labs: 06/29/18 06:00 06/29/18 06:00 - Constitutional Appears: Non-toxic, Chronically Ill - Head Exam Head Exam: NORMOCEPHALIC - Eye Exam Eye Exam: PERRL. absent: Scleral icterus - ENT Exam ENT Exam: Mucous Membranes Dry - Neck Exam Neck Exam: absent: Lymphadenopathy - Respiratory Exam Respiratory Exam: Decreased Breath Sounds - Cardiovascular Exam Cardiovascular Exam: REGULAR RHYTHM - GI/Abdominal Exam GI & Abdominal Exam: Distended, Soft - Rectal Exam Rectal Exam: Deferred - Exam Exam: NORMAL INSPECTION - Extremities Exam Extremities Exam: absent: Pedal Edema - Back Exam Back Exam: absent: CVA tenderness (L), CVA tenderness (R) - Neurological Exam Neurological Exam: Alert, Awake, Oriented x3 Assessment and Plan (1) History of ESBL E. coli infection Status: Acute (2) History of ESBL E. coli infection Status: Acute (3) Sepsis Status: Acute - Assessment and Plan (Free Text) Assessment: repeat urine c/s neg still has burning and U/a abnormal recc : PO nitrofurantoin for 14 days upon discharge
[2018-07-05] MEDS: Meropenem 500 MG in Sodium Chloride 0.9% 100 ML IVPB SCH ×3 (00:02→16:44)
[2018-07-05] MEDS: Lactulose 10 gm/15 ml Syrup PO SCH (08:09)
[2018-07-06] MEDS: Meropenem 500 MG in Sodium Chloride 0.9% 100 ML IVPB SCH ×3 (02:00→16:39)
--- NOTE | 2018-07-06 08:10 | PN ---
DATE: 07/06/2018 SUBJECTIVE: The patient is seen and examined. Interim events noted. The patient remains in transitional care unit, on IV antibiotic. The patient feels okay. Denies any specific complaint. No chest pain or shortness of breath. No urinary symptoms. PHYSICAL EXAMINATION: GENERAL: The patient is in no acute distress. VITAL SIGNS: Stable. Physical exam is essentially unchanged. DIAGNOSTIC DATA: Available diagnostic data reviewed. ASSESSMENT AND PLAN: Overall, the patient's general medical condition is stable. Plan as ordered. Ruben Newell MD
[2018-07-06] MEDS: Lactulose 10 gm/15 ml Syrup PO SCH (08:32)
[2018-07-07] MEDS: Meropenem 500 MG in Sodium Chloride 0.9% 100 ML IVPB SCH ×3 (00:09→16:50)
[2018-07-07] MEDS: Lactulose 10 gm/15 ml Syrup PO SCH (08:42)
--- NOTE | 2018-07-07 11:18 | PN ---
DATE: 07/07/2018 SUBJECTIVE: The patient seen and examined. Interim events noted. The patient remains in transitional care unit, on IV antibiotic. The patient feels okay. Denies any chest pain or shortness of breath. . PHYSICAL EXAMINATION: GENERAL: The patient is in no acute distress. VITAL SIGNS: Stable. HEART: S1 and S2, normal, regular. LUNGS: Good bilateral air exchange. ABDOMEN: Soft, nontender. EXTREMITIES: No edema. No calf swelling. No tenderness. No acute ischemia. SAFE AND VAULT SERVICE MECHANIC: Exam is essentially unchanged. DIAGNOSTIC DATA: Available diagnostic data reviewed. ASSESSMENT AND PLAN: Overall, the patient is medically stable, completing his antibiotic tomorrow, for possible discharge on . Plan as ordered. Ruben Newell MD
--- NOTE | 2018-07-07 13:05 | CP.PCM.PN ---
Subjective - Date & Time of Evaluation Date of Evaluation: 07/07/18 Time of Evaluation: 09:00 - Subjective Subjective: feels ok less dysuria has neg repeat urine c/s however pyuria and microscopic hematuria persist will cont nitrofurantoin as out pt needs gu follow up Objective - Vital Signs/Intake and Output Vital Signs (last 24 hours): Temp Pulse Resp BP Pulse Ox 97.9 F 73 18 109/67 99 07/07/18 10:00 07/07/18 10:00 07/07/18 10:00 07/07/18 10:00 07/07/18 10:00 - Medications Medications: Current Medications Acetaminophen (Tylenol 325mg Tab) 650 mg PO Q6 PRN PRN Reason: pain mild-moderate Aspirin (Ecotrin) 81 mg PO DAILY [facility] Last Admin: 06/30/18 09:15 Dose: Not Given Atorvastatin Calcium (Lipitor) 10 mg PO HS [facility] Last Admin: 07/06/18 21:09 Dose: 10 mg Bisacodyl (Dulcolax) 10 mg [place] DAILY PRN PRN Reason: Constipation Last Admin: 07/05/18 08:09 Dose: 10 mg Hydrochlorothiazide (Hydrodiuril) 25 mg PO DAILY [facility] Last Admin: 07/07/18 08:43 Dose: 25 mg Meropenem 500 mg/ Sodium (Chloride) 100 mls @ 100 mls/hr IVPB Q8 [facility] Last Admin: 07/07/18 08:43 Dose: 100 mls/hr Lactulose (Enulose) 10 gm PO DAILY [facility] Last Admin: 07/07/18 08:42 Dose: 10 gm Lisinopril (Zestril) 20 mg PO DAILY [facility] Last Admin: 07/07/18 08:43 Dose: 20 mg Metformin HCl (Glucophage) 500 mg PO DAILY [facility] Last Admin: 07/07/18 08:43 Dose: 500 mg Sennosides (Senokot Tab) 17.2 mg PO HS PRN PRN Reason: Constipation Last Admin: 07/05/18 21:59 Dose: 17.2 mg - Labs Labs: 06/29/18 06:00 06/29/18 06:00 Assessment and Plan (1) History of ESBL E. coli infection Status: Acute (2) History of ESBL E. coli infection Status: Acute (3) Sepsis Status: Acute
[2018-07-07 17:27] VITALS: RESP 20
[2018-07-08] MEDS: Meropenem 500 MG in Sodium Chloride 0.9% 100 ML IVPB SCH ×3 (00:18→16:29)
[2018-07-08 06:58] LABS: HEMOGLOBIN 11.9 g/dL (12.0-18.0); MEAN CELL VOLUME 92.2 fl (80.0-94.0); MEAN CORPUSCULAR HEMOGLOBIN 31.1 pg (27.0-31.0); MEAN CORPUSCULAR HGB CONC 33.7 g/dL (33.0-37.0); RBC 3.82 Mil/uL (4.40-5.90); RED CELL DISTRIBUTION WIDTH 13.8 % (11.5-14.5); WHITE BLOOD COUNT 6.9 K/uL (4.8-10.8)
[2018-07-08 07:14] LABS: ALBUMIN 3.6 g/dL (3.5-5.0); ALT/SGPT 52 U/L (21-72); AST/SGOT 32 U/L (17-59); BLOOD UREA NITROGEN 16 mg/dl (9-20); CALCIUM 9.6 mg/dL (8.4-10.2); GFR NON-AFRICAN AMERICAN > 60
--- NOTE | 2018-07-08 07:55 | CP.PCM.PN ---
<RaleighSultan - Last Filed: 07/08/18 08:11> Subjective - Date & Time of Evaluation Date of Evaluation: 07/08/18 Time of Evaluation: 07:25 - Subjective Subjective: Patient seen and examined with Dr. Newell this morning. No acute overnight events. Denies any complaints this morning. Patient's last day of IV abx is today. Objective - Vital Signs/Intake and Output Vital Signs (last 24 hours): Temp Pulse Resp BP Pulse Ox 97.9 F 56 L 20 102/65 100 07/07/18 21:11 07/07/18 21:11 07/07/18 21:11 07/07/18 21:11 07/07/18 21:11 - Medications Medications: Current Medications Acetaminophen (Tylenol 325mg Tab) 650 mg PO Q6 PRN PRN Reason: pain mild-moderate Aspirin (Ecotrin) 81 mg PO DAILY [facility] Last Admin: 06/30/18 09:15 Dose: Not Given Atorvastatin Calcium (Lipitor) 10 mg PO HS [facility] Last Admin: 07/07/18 21:24 Dose: 10 mg Bisacodyl (Dulcolax) 10 mg UT DAILY PRN PRN Reason: Constipation Last Admin: 07/05/18 08:09 Dose: 10 mg Hydrochlorothiazide (Hydrodiuril) 25 mg PO DAILY [facility] Last Admin: 07/07/18 08:43 Dose: 25 mg Meropenem 500 mg/ Sodium (Chloride) 100 mls @ 100 mls/hr IVPB Q8 [facility] Last Admin: 07/08/18 00:18 Dose: 100 mls/hr Lactulose (Enulose) 10 gm PO DAILY [facility] Last Admin: 07/07/18 08:42 Dose: 10 gm Lisinopril (Zestril) 20 mg PO DAILY [facility] Last Admin: 07/07/18 08:43 Dose: 20 mg Metformin HCl (Glucophage) 500 mg PO DAILY [facility] Last Admin: 07/07/18 08:43 Dose: 500 mg Sennosides (Senokot Tab) 17.2 mg PO HS PRN PRN Reason: Constipation Last Admin: 07/07/18 21:24 Dose: 17.2 mg - Labs Labs: 07/08/18 06:52 07/08/18 06:52 - Constitutional Appears: Non-toxic, No Acute Distress - Head Exam Head Exam: NORMAL INSPECTION - Eye Exam Eye Exam: Normal appearance - ENT Exam ENT Exam: Mucous Membranes Moist - Respiratory Exam Respiratory Exam: Clear to Ausculation Bilateral, NORMAL BREATHING PATTERN. absent: Rhonchi, Wheezes - Cardiovascular Exam Cardiovascular Exam: REGULAR RHYTHM, +S1, +S2 - GI/Abdominal Exam GI & Abdominal Exam: Soft, Normal Bowel Sounds. absent: Tenderness - Neurological Exam Neurological Exam: Alert, Awake - Skin Skin Exam: Normal Color, Warm Assessment and Plan - Assessment and Plan (Free Text) Assessment: Pt is a 68 y/o male with hx of BPH s/p prostate laser ablation on 06/21/18 admitted to TCU for completion of IV antibiotic for ESBL E. coli sepsis. Plan: -continue with Meropenem 500 mg IVPB q8h, Last day of abx is today. -Urologist Dr. Zeng on board -ID on board -c/w home medications. -PT/OT -Anticipate discharge tomorrow. Patient seen and examined with Dr. Newell during rounds this AM. Sultan Santiago, [id number] <Ruben Newell - Last Filed: 07/10/18 11:48> Objective - Vital Signs/Intake and Output Vital Signs (last 24 hours): Temp Pulse Resp BP Pulse Ox 97.7 F 63 20 90/63 L 100 07/09/18 09:19 07/09/18 09:19 07/09/18 09:19 07/09/18 09:19 07/09/18 09:19 - Labs Labs: 07/08/18 06:52 07/08/18 06:52 Assessment and Plan - Assessment and Plan (Free Text) Assessment: Patient was personally seen and examined by me in rounds with residents. Available labs and diagnostic data reviewed. Case, Patient's condition and management plan discussed with residents in rounds. Agree with resident's progress note. Plan: As ordered.
[2018-07-08] MEDS: Lactulose 10 gm/15 ml Syrup PO SCH (09:12)
[2018-07-08 17:22] VITALS: TEMP 97.7
[2018-07-08 19:42] VITALS: O2SAT 100
[2018-07-09] MEDS: Lactulose 10 gm/15 ml Syrup PO SCH (08:18)
[2018-07-09 09:20] VITALS: BP 90/63; PULSE 63
--- NOTE | 2018-07-12 09:23 | PN ---
DATE: 07/09/2018 SUBJECTIVE: The patient seen and examined. Interim events noted. The patient remains in regular medical floor, in transitional care unit. The patient completed antibiotic yesterday. The patient feels okay. Denies any chest pain, shortness of breath or any urinary symptoms. PHYSICAL EXAMINATION: GENERAL: The patient is in no acute distress. VITAL SIGNS: Stable. HEART: S1 and S2, normal and regular. LUNGS: Good bilateral air exchange. ABDOMEN: Soft, nontender. EXTREMITIES: No edema. No calf swelling. No tenderness. No acute ischemia. ALUMNAE SECRETARY: Exam is essentially unchanged. DIAGNOSTIC DATA: Available diagnostic data reviewed. ASSESSMENT AND PLAN: Overall, the patient is medically stable. We will discharge the patient home today. The patient will be followed up by the patient's primary care physician, Dr. Juana Degroot. Case was also discussed with Dr. Degroot. Plan as ordered. Ruben Newell MD
== END 2018-07-09 11:45 | disposition home or self-care (01) | DRG 872 ==
LOC: H.TCU 19:16
PROVIDERS: ADMIT Internal Medicine; ATTEND Internal Medicine
DX: A41.51 Sepsis due to Escherichia coli [E. coli] (principal); N39.0 Urinary tract infection, site not specified; R31.29 Other microscopic hematuria; Z16.12 Extended spectrum beta lactamase (ESBL) resistance; I10 Essential (primary) hypertension; E11.9 Type 2 diabetes mellitus without complications; E78.00 Pure hypercholesterolemia, unspecified; N40.0 Benign prostatic hyperplasia without lower urinary tract symptoms; M19.90 Unspecified osteoarthritis, unspecified site; Z86.19 Personal history of other infectious and parasitic diseases; Z79.84 Long term (current) use of oral hypoglycemic drugs